=== PATIENT | female | born 1970 | race Hispanic/Latino ===

== ENCOUNTER 2018-05-17 23:22 | Emergency (ER) | payer OTHER ==
[~2018-05-17 23:22] MED LIST: CIPR-245 PO; FAMO-136 PO; METR500T PO
[2018-05-18] MEDS ORDERED: ONDANSETRON ODT 4 MG TAB ONE (00:25)
[2018-05-18] MEDS ORDERED: FAMOTIDINE 20MG TAB 20 MG TAB ONE (00:25)
== END 2018-05-18 00:41 | disposition home or self-care (01) ==
LOC: EDH 23:22
DX: R10.13 Epigastric pain (principal); R11.0 Nausea; R05 Cough

== ENCOUNTER 2019-07-13 20:38 | Emergency (ER) | payer SELFPAY | END 2019-07-13 21:02 | disposition home or self-care (01) | LOC: EDH 20:38 | DX: L29.9 Pruritus, unspecified (principal) | CPT/HCPCS: 99281 ==

== ENCOUNTER 2019-07-19 04:21 | Emergency (ER) | payer OTHER | END 2019-07-19 04:39 | disposition home or self-care (01) | LOC: EDH 04:21 | DX: B34.9 Viral infection, unspecified (principal); Z98.890 Other specified postprocedural states | CPT/HCPCS: 99281 ==

== ENCOUNTER 2019-09-07 18:31 | Emergency (ER) | payer SELFPAY | END 2019-09-07 19:18 | disposition home or self-care (01) | LOC: EDH 18:31 | DX: H66.92 Otitis media, unspecified, left ear (principal) ==

== ENCOUNTER 2019-09-30 14:54 | Emergency (ER) | payer SELFPAY | END 2019-09-30 15:37 | disposition home or self-care (01) | LOC: EDH 14:54 | DX: R09.81 Nasal congestion (principal); H92.02 Otalgia, left ear; Z98.890 Other specified postprocedural states | CPT/HCPCS: 99281 ==

== ENCOUNTER 2019-11-03 18:40 | Emergency (ER) | payer SELFPAY ==
[2019-11-03 19:45] LABS: BASOPHILS % (AUTO) 0.4 % (0.0-5.0); HEMATOCRIT 36.8 % (36-48); LYMPHOCYTES % (AUTO) 32.4 % (21.0-51.0); MEAN CORPUSCULAR HEMOGLOBIN 28.4 pg (27.0-33.0); MEAN CORPUSCULAR HGB CONC 31.5 g/dL (32.0-36.0); MEAN CORPUSCULAR VOLUME 90.2 fL (79-99); MONOCYTES % (AUTO) 6.7 % (3.0-13.0); NEUTROPHILS % (AUTO) 56.1 % (40.0-77.0); PLATELET COUNT (AUTO) 204 K/uL (130-400); RED BLOOD CELL COUNT(AUTO) 4.08 MIL/uL (4.00-5.50); RED CELL DISTRIBUTION WIDTH 13.6 % (11.0-15.5); WHITE BLOOD COUNT (AUTO) 5.6 K/uL (4.8-10.8)
[2019-11-03 19:53] LABS: BILIRUBIN,URINE Negative (NEGATIVE); COLOR,URINE Yellow (YELLOW); GLUCOSE, URINE (UA) Negative (NEGATIVE); KETONES,URINE Negative (NEGATIVE); LEUKOCYTE ESTERASE ,URINE Negative (NEGATIVE); NITRATE,URINE Negative (NEGATIVE); OCCULT BLOOD,URINE Negative (NEGATIVE); PROTEIN,URINE Negative (NEGATIVE)
[2019-11-03 19:56] LABS: CREATININE 1.1 mg/dL (0.5-1.5); HCG,QUAL RESULT NEGATIVE (NEGATIVE); POTASSIUM 3.9 mmol/L (3.5-5.1)
[2019-11-03 19:58] LABS: AMPHET/METH SCREEN,URINE NEGATIVE (NEGATIVE); APPEARANCE,URINE SLIGHTLY CLOUDY (CLEAR); BARBITURATE SCREEN, URINE NEGATIVE (NEGATIVE); BENZODIAZEPINES SCREEN,URINE NEGATIVE (NEGATIVE); CANNABINOID SCREEN,URINE NEGATIVE (NEGATIVE); COCAINE SCREEN,URINE NEGATIVE (NEGATIVE); OPIATE SCREEN,URINE NEGATIVE (NEGATIVE); PHENCYCLIDINE SCREEN,URINE NEGATIVE (NEGATIVE)
[2019-11-03 20:01] LABS: ALBUMIN 3.9 g/dL (3.5-5.0); BILIRUBIN,TOTAL 0.3 mg/dL (0.2-1.0); TOTAL PROTEIN, SERUM 10.1 g/dL (6.0-8.3)
[2019-11-03 20:04] LABS: BACTERIA,URINE Few /HPF (None Seen); RBC,URINE None Seen /HPF (0-1); WBC,URINE 0-1 /HPF (0-1)
[2019-11-03] MEDS ORDERED: ONDANSETRON HCL 4 MG/2 ML VIAL ONE (20:46)
[2019-11-03] MEDS ORDERED: KETOROLAC TROMETHAMINE 30MG/ML ONE (20:46)
[2019-11-03] MEDS ORDERED: FAMOTIDINE/PF 20 MG/2 ML VIAL IV ONE (20:46)
[2019-11-03] MEDS ORDERED: SUCRALFATE 1 GM TABLET ONE (20:46)
== END 2019-11-03 21:20 | disposition home or self-care (01) ==
LOC: EDH 18:40
DX: R10.11 Right upper quadrant pain (principal); R10.13 Epigastric pain; R11.0 Nausea; Z98.890 Other specified postprocedural states
CPT/HCPCS: 36415; 80053; 80305; 81001; 81025; 83690; 84484; 85025; 93005; 96374; 96375; 99284; J1885; J2405; J3490

== ENCOUNTER 2019-11-11 00:24 | Emergency (ER) | payer SELFPAY ==
[2019-11-11] MEDS ORDERED: LIDOCAINE HCL-MPF 1% 2ML VIAL ONE (01:05)
[2019-11-11] MEDS ORDERED: HYDROCODONE/ACETAMINOPHEN 10/325 MG TAB ONE (01:05)
[2019-11-11] MEDS ORDERED: CEFTRIAXONE SODIUM 1 GM ONE (01:05)
[2019-11-11] MEDS ORDERED: ONDANSETRON ODT 4 MG TAB ONE (01:06)
== END 2019-11-11 01:28 | disposition home or self-care (01) ==
LOC: EDH 00:24
DX: K04.7 Periapical abscess without sinus (principal); K08.89 Other specified disorders of teeth and supporting structures; Z98.890 Other specified postprocedural states
CPT/HCPCS: 96372; 99283; J0696; J3490

== ENCOUNTER 2020-01-08 18:30 | Emergency (ER) | payer OTHER ==
[2020-01-08 18:53] LABS: BASOPHILS % (AUTO) 0.3 % (0.0-5.0); EOSINOPHILS % (AUTO) 3.3 % (0.0-8.0); HEMATOCRIT 30.3 % (36-48); LYMPHOCYTES % (AUTO) 28.2 % (21.0-51.0); MEAN CORPUSCULAR HEMOGLOBIN 28.4 pg (27.0-33.0); MEAN CORPUSCULAR HGB CONC 31.7 g/dL (32.0-36.0); MEAN CORPUSCULAR VOLUME 89.6 fL (79-99); PLATELET COUNT (AUTO) 219 K/uL (130-400); RED BLOOD CELL COUNT(AUTO) 3.38 MIL/uL (4.00-5.50); RED CELL DISTRIBUTION WIDTH 13.4 % (11.0-15.5); WHITE BLOOD COUNT (AUTO) 5.8 K/uL (4.8-10.8)
[2020-01-08] MEDS ORDERED: ONDANSETRON ODT 4 MG TAB ONE (19:05)
[2020-01-08] MEDS ORDERED: LIDOCAINE HCL 2% VISCOUS 15 ML UDCUP ONE (19:05)
[2020-01-08] MEDS ORDERED: MAG HYDROX/AL HYDROX/SIMETH ES 30 ML SUSP UDCUP ONE (19:05)
[2020-01-08 19:12] LABS: CREATININE 1.1 mg/dL (0.5-1.5); POTASSIUM 3.2 mmol/L (3.5-5.1)
[2020-01-08 19:15] LABS: APPEARANCE,URINE Clear (CLEAR); BILIRUBIN,URINE Negative (NEGATIVE); COLOR,URINE Yellow (YELLOW); GLUCOSE, URINE (UA) Negative (NEGATIVE); KETONES,URINE Negative (NEGATIVE); LEUKOCYTE ESTERASE ,URINE Trace (NEGATIVE); NITRATE,URINE Negative (NEGATIVE); OCCULT BLOOD,URINE Large (NEGATIVE); PH,URINE 7.5 (5.0-8.0); PROTEIN,URINE Negative (NEGATIVE)
[2020-01-08 19:16] LABS: ALBUMIN 3.1 g/dL (3.5-5.0); BILIRUBIN,TOTAL 0.1 mg/dL (0.2-1.0); TOTAL PROTEIN, SERUM 8.6 g/dL (6.0-8.3)
[2020-01-08 19:17] LABS: HCG,QUAL RESULT NEGATIVE (NEGATIVE)
[2020-01-08 19:23] LABS: AMPHET/METH SCREEN,URINE NEGATIVE (NEGATIVE); BARBITURATE SCREEN, URINE NEGATIVE (NEGATIVE); BENZODIAZEPINES SCREEN,URINE NEGATIVE (NEGATIVE); CANNABINOID SCREEN,URINE NEGATIVE (NEGATIVE); COCAINE SCREEN,URINE NEGATIVE (NEGATIVE); OPIATE SCREEN,URINE NEGATIVE (NEGATIVE); PHENCYCLIDINE SCREEN,URINE NEGATIVE (NEGATIVE)
[2020-01-08 19:27] LABS: BACTERIA,URINE Few /HPF (None Seen); SQUAMOUS EPITHELIAL CELL,UR Moderate /HPF (0-2)
[2020-01-08 19:28] LABS: MUCUS,URINE Moderate LPF (None Seen)
== END 2020-01-08 19:55 | disposition home or self-care (01) ==
LOC: EDH 18:30
DX: K29.00 Acute gastritis without bleeding (principal); E87.6 Hypokalemia; D50.9 Iron deficiency anemia, unspecified; D64.9 Anemia, unspecified; Z98.890 Other specified postprocedural states
CPT/HCPCS: 36415; 80053; 80305; 81001; 81025; 83690; 85025; 93005

== ENCOUNTER 2020-07-28 19:21 | Emergency (ER) | payer OTHER ==
[~2020-07-28 19:21] MED LIST changes: -CIPR-245 PO; +CIPR500T10 PO
[2020-07-28] MEDS ORDERED: KETOROLAC TROMETHAMINE 30MG/ML ONE (21:11)
[2020-07-28] MEDS ORDERED: HYDROCODONE/ACETAMINOPHEN 5/325 MG TAB ONE (21:12)
== END 2020-07-28 22:37 | disposition home or self-care (01) ==
LOC: EDH 19:21
DX: M54.2 Cervicalgia (principal); R51.9 Headache, unspecified; M54.9 Dorsalgia, unspecified; Z98.890 Other specified postprocedural states; V49.59XA Passenger injured in collision with other motor vehicles in traffic accident, initial encounter; Y93.89 Activity, other specified; Y92.488 Other paved roadways as the place of occurrence of the external cause; Y99.8 Other external cause status
CPT/HCPCS: 70450; 72070; 72125; 96372; 99285; J1885

== ENCOUNTER 2020-08-17 16:29 | Emergency (ER) | payer OTHER ==
[2020-08-17 18:04] LABS: BASOPHILS % (AUTO) 0.7 % (0.0-5.0); EOSINOPHILS % (AUTO) 3.2 % (0.0-8.0); HEMATOCRIT 30.9 % (36-48); LYMPHOCYTES % (AUTO) 26.1 % (21.0-51.0); MEAN CORPUSCULAR HEMOGLOBIN 27.7 pg (27.0-33.0); MEAN CORPUSCULAR HGB CONC 31.1 g/dL (32.0-36.0); MONOCYTES % (AUTO) 8.8 % (3.0-13.0); PLATELET COUNT (AUTO) 189 K/uL (130-400); RED BLOOD CELL COUNT(AUTO) 3.47 MIL/uL (4.00-5.50); RED CELL DISTRIBUTION WIDTH 14.6 % (11.0-15.5); WHITE BLOOD COUNT (AUTO) 4.3 K/uL (4.8-10.8)
[2020-08-17 18:09] LABS: CREATININE 0.9 mg/dL (0.5-1.5); POTASSIUM 3.6 mmol/L (3.5-5.1)
[2020-08-17 18:13] LABS: ALBUMIN 3.1 g/dL (3.5-5.0); BILIRUBIN,TOTAL 0.2 mg/dL (0.2-1.0); TOTAL PROTEIN, SERUM 8.5 g/dL (6.0-8.3)
== END 2020-08-17 19:05 | disposition home or self-care (01) ==
LOC: EDH 16:29
DX: K29.00 Acute gastritis without bleeding (principal); K20.90 Esophagitis, unspecified without bleeding; F41.1 Generalized anxiety disorder
CPT/HCPCS: 36415; 71045; 80053; 83690; 85025; 86677; 93005

== ENCOUNTER 2020-12-14 12:23 | Emergency (ER) | payer SELFPAY ==
[2020-12-14 15:14] LABS: BASOPHILS % (AUTO) 0.6 % (0.0-5.0); HEMATOCRIT 37.2 % (36-48); MEAN CORPUSCULAR HEMOGLOBIN 28.7 pg (27.0-33.0); MEAN CORPUSCULAR HGB CONC 31.5 g/dL (32.0-36.0); MEAN CORPUSCULAR VOLUME 91.4 fL (79-99); MONOCYTES % (AUTO) 6.7 % (3.0-13.0); NEUTROPHILS % (AUTO) 63.5 % (40.0-77.0); PLATELET COUNT (AUTO) 207 K/uL (130-400); RED BLOOD CELL COUNT(AUTO) 4.07 MIL/uL (4.00-5.50); RED CELL DISTRIBUTION WIDTH 14.6 % (11.0-15.5)
[2020-12-14 15:16] LABS: APPEARANCE,URINE Cloudy (CLEAR); BILIRUBIN,URINE Negative (NEGATIVE); COLOR,URINE Red (YELLOW); GLUCOSE, URINE (UA) Negative (NEGATIVE); KETONES,URINE Negative (NEGATIVE); LEUKOCYTE ESTERASE ,URINE Trace (NEGATIVE); NITRATE,URINE Negative (NEGATIVE); OCCULT BLOOD,URINE Large (NEGATIVE); PH,URINE 5.5 (5.0-8.0); PROTEIN,URINE POS 2+ mg/dL (NEGATIVE); UROBILINOGEN,URINE 0.2 mg/dL (0.2-1.0)
[2020-12-14 15:24] LABS: CREATININE 0.9 mg/dL (0.5-1.5); POTASSIUM 3.7 mmol/L (3.5-5.1)
[2020-12-14 15:25] LABS: BACTERIA,URINE Moderate /HPF (None Seen); WBC,URINE 0-1 /HPF (0-1)
[2020-12-14 15:28] LABS: SQUAMOUS EPITHELIAL CELL,UR 30-50 /HPF (0-2)
[2020-12-14 15:28] LABS: ALBUMIN 3.3 g/dL (3.5-5.0); BILIRUBIN,TOTAL 0.2 mg/dL (0.2-1.0); TOTAL PROTEIN, SERUM 9.2 g/dL (6.0-8.3)
[2020-12-14] MEDS ORDERED: CLOT15C TP (15:31)
[2020-12-14 15:44] VITALS: BP 116/81
== END 2020-12-14 15:44 | disposition home or self-care (01) ==
LOC: EDH 12:23
DX: B35.6 Tinea cruris (principal); E66.3 Overweight
CPT/HCPCS: 36415; 80053; 81001; 81025; 82948; 85025; 87088

== ENCOUNTER 2021-02-25 21:31 | Emergency (ER) | payer SELFPAY ==
[~2021-02-25] VITALS: Ht 152.4 cm; Wt 74.8 kg
[~2021-02-25 21:31] MED LIST changes: +CLOT15C TP
[2021-02-25 23:30] LABS: BASOPHILS % (AUTO) 0.4 % (0.0-5.0); EOSINOPHILS % (AUTO) 3.7 % (0.0-8.0); HEMATOCRIT 30.6 % (36-48); LYMPHOCYTES % (AUTO) 28.3 % (21.0-51.0); MEAN CORPUSCULAR HEMOGLOBIN 28.7 pg (27.0-33.0); MEAN CORPUSCULAR VOLUME 89.5 fL (79-99); MONOCYTES % (AUTO) 6.9 % (3.0-13.0); NEUTROPHILS % (AUTO) 60.7 % (40.0-77.0); PLATELET COUNT (AUTO) 245 K/uL (130-400); RED BLOOD CELL COUNT(AUTO) 3.42 MIL/uL (4.00-5.50); WHITE BLOOD COUNT (AUTO) 5.4 K/uL (4.8-10.8)
[2021-02-25 23:43] LABS: CREATININE 0.9 mg/dL (0.5-1.5); POTASSIUM 3.7 mmol/L (3.5-5.1)
[2021-02-25] MEDS ORDERED: ESTROGENS,CONJUGATED 25 MG/VIAL IM STA (23:48)
[2021-02-25 23:49] LABS: ALBUMIN 3.2 g/dL (3.5-5.0); BILIRUBIN,TOTAL 0.1 mg/dL (0.2-1.0); TOTAL PROTEIN, SERUM 8.7 g/dL (6.0-8.3)
[2021-02-25] MEDS ORDERED: ONDANSETRON ODT 4MG TAB SL STA (23:50)
[2021-02-25] MEDS ORDERED: KETOROLAC 30MG VIAL (30MG/ML) IM STA (23:52)
[2021-02-25] MEDS ORDERED: ONDANSETRON 4MG INJ ONE (23:55)
[2021-02-25] MEDS ORDERED: HYDROCODONE/ACETAMINOPHEN 5/325 MG TAB ONE (23:55)
[2021-02-25] MEDS ORDERED: KETOROLAC 30MG VIAL (30MG/ML) ONE (23:55)
[2021-02-26] MEDS ORDERED: HYDROCODONE/ACETAMINOPHEN 5/325 MG TAB PO ONE
[2021-02-26] MEDS ORDERED: NORG1TAB87 PO (00:05)
[2021-02-26] MEDS ORDERED: FERR-72 PO (00:05)
[2021-02-26 00:12] VITALS: BP 128/70
== END 2021-02-26 00:16 | disposition home or self-care (01) ==
LOC: EDH 21:31
DX: D50.9 Iron deficiency anemia, unspecified (principal); N93.8 Other specified abnormal uterine and vaginal bleeding; Z79.1 Long term (current) use of non-steroidal anti-inflammatories (NSAID); Z79.899 Other long term (current) drug therapy
CPT/HCPCS: 36415 ×2; 80053; 84703; 85025; 86850; 86900; 86901; 96372; 99283; J1885; J1410; J2405

== ENCOUNTER 2021-03-18 01:11 | Emergency (ER) | payer OTHER ==
[~2021-03-18] VITALS: Ht 152.4 cm; Wt 77.1 kg
[~2021-03-18 01:11] MED LIST changes: +FERR-72 PO; +NORG1TAB87 PO
[2021-03-18 01:45] LABS: BASOPHILS % (AUTO) 0.6 % (0.0-5.0); EOSINOPHILS % (AUTO) 3.6 % (0.0-8.0); HEMATOCRIT 32.7 % (36-48); LYMPHOCYTES % (AUTO) 27.1 % (21.0-51.0); MEAN CORPUSCULAR HEMOGLOBIN 28.6 pg (27.0-33.0); MEAN CORPUSCULAR HGB CONC 31.5 g/dL (32.0-36.0); MEAN CORPUSCULAR VOLUME 90.8 fL (79-99); MONOCYTES % (AUTO) 10.7 % (3.0-13.0); NEUTROPHILS % (AUTO) 57.7 % (40.0-77.0); PLATELET COUNT (AUTO) 229 K/uL (130-400); RED CELL DISTRIBUTION WIDTH 13.2 % (11.0-15.5); WHITE BLOOD COUNT (AUTO) 6.7 K/uL (4.8-10.8)
[2021-03-18 01:51] LABS: BILIRUBIN,URINE Negative (NEGATIVE); COLOR,URINE Yellow (YELLOW); GLUCOSE, URINE (UA) Negative (NEGATIVE); KETONES,URINE Negative (NEGATIVE); LEUKOCYTE ESTERASE ,URINE Small (NEGATIVE); NITRATE,URINE Negative (NEGATIVE); OCCULT BLOOD,URINE Small (NEGATIVE); PH,URINE 5.5 (5.0-8.0); PROTEIN,URINE Negative (NEGATIVE)
[2021-03-18 01:52] LABS: APPEARANCE,URINE SLIGHTLY CLOUDY (CLEAR)
[2021-03-18 01:53] LABS: HCG,QUAL RESULT NEGATIVE (NEGATIVE)
[2021-03-18 01:54] LABS: CREATININE 0.9 mg/dL (0.5-1.5); POTASSIUM 3.4 mmol/L (3.5-5.1)
[2021-03-18 01:58] LABS: ALBUMIN 3.2 g/dL (3.5-5.0); BILIRUBIN,TOTAL 0.1 mg/dL (0.2-1.0); TOTAL PROTEIN, SERUM 9.2 g/dL (6.0-8.3)
[2021-03-18 02:01] LABS: BACTERIA,URINE Moderate /HPF (None Seen); SQUAMOUS EPITHELIAL CELL,UR Moderate /HPF (0-2)
[2021-03-18] MEDS ORDERED: FAMOTIDINE 20MG VIAL IV ONE (03:30)
[2021-03-18] MEDS ORDERED: METOCLOPRAMIDE 10 MG/2 ML VIAL IVP ONE (03:30)
[2021-03-18] MEDS ORDERED: ONDANSETRON 4MG INJ IVP ONE (03:30)
[2021-03-18] MEDS ORDERED: 0.9%NACL 1000ML 1,000 ML IV ONE (03:30)
[2021-03-18] MEDS ORDERED: PANTOPRAZOLE 40 MG/VIAL IVP ONE (03:30)
[2021-03-18] MEDS ORDERED: PANT40TA PO (05:59)
[2021-03-18] MEDS ORDERED: METO-296 PO (05:59)
[2021-03-18] MEDS ORDERED: ONDA4TAB10 PO (05:59)
[2021-03-18] MEDS ORDERED: DICY20TA2 PO (05:59)
[2021-03-18 06:01] VITALS: BP 113/56
== END 2021-03-18 06:11 | disposition home or self-care (01) ==
LOC: EDH 01:11
DX: K29.70 Gastritis, unspecified, without bleeding (principal); E86.9 Volume depletion, unspecified; Z79.899 Other long term (current) drug therapy
CPT/HCPCS: 36415; 80053; 81001; 81025; 83690; 85025; 87088; 96374; 96375; 99285; C9113; J2405; J2765; J3490

== ENCOUNTER 2023-07-02 18:22 | Emergency (ER) | payer OTHER ==
[~2023-07-02] VITALS: Ht 160 cm; Wt 69.4 kg
[~2023-07-02 18:22] MED LIST changes: +DICY20TA2 PO; +METO-296 PO; +ONDA4TAB10 PO; +PANT40TA PO
[2023-07-02 19:16] LABS: BASOPHILS # (AUTO) 0.04 K/uL (0.00-0.20); BASOPHILS % (AUTO) 0.8 % (0.0-5.0); EOSINOPHILS # (AUTO) 0.24 K/uL (0.00-0.70); EOSINOPHILS % (AUTO) 4.9 % (0.0-8.0); HEMATOCRIT 36.4 % (36-48); IMMATURE GRANULOCYTE ABSOLUTE 0.01 K/uL (0-1); LYMPHOCYTES # (AUTO) 1.5 K/uL (1.0-4.8); LYMPHOCYTES % (AUTO) 29.7 % (21.0-51.0); MEAN CORPUSCULAR HEMOGLOBIN 28.6 pg (27.0-33.0); MEAN CORPUSCULAR HGB CONC 31.6 g/dL (32.0-36.0); MEAN CORPUSCULAR VOLUME 90.5 fL (79-99); MONOCYTES # (AUTO) 0.4 K/uL (0.1-1.0); MONOCYTES % (AUTO) 7.1 % (3.0-13.0); NEUTROPHILS # (AUTO) 2.8 K/uL (1.8-7.7); NEUTROPHILS % (AUTO) 57.3 % (40.0-77.0); PLATELET COUNT (AUTO) 176 K/uL (130-400); RED BLOOD CELL COUNT(AUTO) 4.02 MIL/uL (4.00-5.50); RED CELL DISTRIBUTION WIDTH 13.9 % (11.0-15.5); WHITE BLOOD COUNT (AUTO) 4.9 K/uL (4.8-10.8)
[2023-07-02 19:30] LABS: CREATININE 0.8 mg/dL (0.5-1.0)
[2023-07-02 19:32] LABS: APPEARANCE,URINE CLEAR (CLEAR); BILIRUBIN,URINE NEGATIVE (NEGATIVE); COLOR,URINE COLORLESS (YELLOW); GLUCOSE, URINE (UA) NEGATIVE (NEGATIVE); KETONES,URINE NEGATIVE (NEGATIVE); LEUKOCYTE ESTERASE ,URINE NEGATIVE Leu/uL (NEGATIVE); NITRATE,URINE NEGATIVE (NEGATIVE); OCCULT BLOOD,URINE NEGATIVE (NEGATIVE); PH,URINE 6.5 (5.0-8.0); PROTEIN,URINE NEGATIVE (NEGATIVE); UROBILINOGEN,URINE 0.2 mg/dL (0.2-1.0)
[2023-07-02 19:35] LABS: ADD UA MICROSCOPIC YES
[2023-07-02 19:35] LABS: ALBUMIN 3.2 g/dL (3.5-5.0); BILIRUBIN,TOTAL 0.1 mg/dL (0.2-1.0); TOTAL PROTEIN, SERUM 8.4 g/dL (6.0-8.3)
[2023-07-02 19:37] LABS: MUCUS,URINE RARE LPF (None Seen); SQUAMOUS EPITHELIAL CELL,UR RARE /HPF (0-2); WBC,URINE 0-1 /HPF (0-1)
[2023-07-02] MEDS: KETOROLAC 30MG VIAL (30MG/ML) IVP ONE (23:28)
[2023-07-02] MEDS: KETOROLAC 30MG VIAL (30MG/ML) ONE (23:28)
[2023-07-03] MEDS ORDERED: LACT20PA6 PO (01:22)
[2023-07-03 01:24] VITALS: BP 122/62; PULSE 74; RESP 14; O2SAT 98
[2023-07-03] MEDS ORDERED: ONDA4TAB10 PO (14:20)
[2023-07-03] MEDS ORDERED: MAG-37 PO (14:20)
[2023-07-03] MEDS ORDERED: FAMO-136 PO (14:20)
== END 2023-07-03 01:44 | disposition home or self-care (01) ==
LOC: EDH 18:22
DX: K57.30 Diverticulosis of large intestine without perforation or abscess without bleeding (principal); K59.00 Constipation, unspecified; D64.9 Anemia, unspecified; Z79.899 Other long term (current) drug therapy; Z98.890 Other specified postprocedural states
CPT/HCPCS: 99285; 74176; 96374; 84484; 80053; 83690; 85025; 81001; 36415; 74018; 93005; J1885

== ENCOUNTER 2023-07-03 11:35 | Emergency (ER) | payer OTHER ==
[~2023-07-03] VITALS: Ht 157.5 cm; Wt 77.1 kg
[~2023-07-03 11:35] MED LIST changes: +LACT20PA6 PO
[2023-07-03 11:46] VITALS: BP 135/79; PULSE 61; RESP 18
[2023-07-03 12:36] LABS: BASOPHILS # (AUTO) 0.02 K/uL (0.00-0.20); BASOPHILS % (AUTO) 0.5 % (0.0-5.0); EOSINOPHILS # (AUTO) 0.19 K/uL (0.00-0.70); EOSINOPHILS % (AUTO) 4.9 % (0.0-8.0); HEMATOCRIT 37.1 % (36-48); LYMPHOCYTES # (AUTO) 1.3 K/uL (1.0-4.8); LYMPHOCYTES % (AUTO) 34.8 % (21.0-51.0); MEAN CORPUSCULAR HEMOGLOBIN 28.4 pg (27.0-33.0); MEAN CORPUSCULAR HGB CONC 31.5 g/dL (32.0-36.0); MONOCYTES # (AUTO) 0.4 K/uL (0.1-1.0); MONOCYTES % (AUTO) 9.6 % (3.0-13.0); NEUTROPHILS # (AUTO) 1.9 K/uL (1.8-7.7); NEUTROPHILS % (AUTO) 50.2 % (40.0-77.0); PLATELET COUNT (AUTO) 164 K/uL (130-400); RED BLOOD CELL COUNT(AUTO) 4.12 MIL/uL (4.00-5.50); RED CELL DISTRIBUTION WIDTH 13.7 % (11.0-15.5); WHITE BLOOD COUNT (AUTO) 3.9 K/uL (4.8-10.8)
[2023-07-03 12:52] LABS: CREATININE 0.9 mg/dL (0.5-1.0); POTASSIUM 4.7 mmol/L (3.5-5.1)
[2023-07-03 12:56] LABS: ALBUMIN 3.3 g/dL (3.5-5.0); BILIRUBIN,TOTAL 0.3 mg/dL (0.2-1.0); TOTAL PROTEIN, SERUM 8.4 g/dL (6.0-8.3)
[2023-07-03] MEDS: MAGNESIUM CITRATE 296 ML SOLUTION PO ONE (13:09)
[2023-07-03] MEDS: LACTULOSE 20 GM/30 ML UDCUP PO ONE (13:10)
[2023-07-03] MEDS: LIDOCAINE HCL 2% VISCOUS 15 ML UDCUP PO ONE (13:52)
[2023-07-03] MEDS: MAG/ALUM/SIMETH 30 ML UDCUP PO ONE (13:52)
[2023-07-03] MEDS ORDERED: MAG-37 PO (14:20)
[2023-07-03] MEDS ORDERED: ONDA4TAB10 PO (14:20)
[2023-07-03] MEDS ORDERED: FAMO-136 PO (14:20)
== END 2023-07-03 14:27 | disposition home or self-care (01) ==
LOC: EDH 11:35
DX: K29.70 Gastritis, unspecified, without bleeding (principal); D64.9 Anemia, unspecified; Z79.899 Other long term (current) drug therapy; Z98.890 Other specified postprocedural states
CPT/HCPCS: 36415; 74018; 80053; 83690; 84484; 85025; 93005

== ENCOUNTER 2023-07-03 16:32 | Emergency (ER) | payer OTHER ==
[~2023-07-03] VITALS: Ht 157.5 cm; Wt 70.3 kg
[~2023-07-03 16:32] MED LIST changes: +MAG-37 PO
[2023-07-03 16:52] VITALS: BP 116/67; PULSE 71; RESP 18
[2023-07-03] MEDS: ONDANSETRON ODT 4MG TAB SL ONE (19:20)
[2023-07-03] MEDS: MAG/ALUM/SIMETH 30 ML UDCUP PO ONE (19:20)
[2023-07-03] MEDS: FAMOTIDINE 20MG TAB PO ONE (19:20)
[2023-07-03] MEDS: LIDOCAINE HCL 2% VISCOUS 15 ML UDCUP PO ONE (19:20)
== END 2023-07-03 19:19 | disposition left against medical advice (07) ==
LOC: EDH 16:32
DX: K29.70 Gastritis, unspecified, without bleeding (principal); K59.00 Constipation, unspecified; J45.909 Unspecified asthma, uncomplicated; D64.9 Anemia, unspecified; Z79.899 Other long term (current) drug therapy; Z98.890 Other specified postprocedural states
CPT/HCPCS: 99282

== ENCOUNTER 2023-07-26 01:53 | Emergency (ER) | payer OTHER ==
[~2023-07-26] VITALS: Ht 157.5 cm; Wt 74.8 kg
[2023-07-26 01:55] VITALS: BP 133/53; PULSE 65; RESP 18
== END 2023-07-26 02:51 | disposition home or self-care (01) ==
LOC: EDH 01:53
DX: R60.0 Localized edema (principal); Z79.899 Other long term (current) drug therapy
CPT/HCPCS: 99281

== ENCOUNTER 2023-08-11 11:06 | Emergency (ER) | payer OTHER ==
[~2023-08-11] VITALS: Ht 157.5 cm; Wt 74.8 kg
[2023-08-11] MEDS ORDERED: CLIN-141 PO (11:31)
[2023-08-11] MEDS ORDERED: IBUP-2077 PO (11:31)
[2023-08-11] MEDS: KETOROLAC 60 MG VIAL (30MG/ML) IM ONE (11:51)
[2023-08-11 12:04] VITALS: BP 147/78; PULSE 78; RESP 18; O2SAT 98
== END 2023-08-11 12:05 | disposition home or self-care (01) ==
LOC: EDH 11:06
DX: K02.9 Dental caries, unspecified (principal); K08.89 Other specified disorders of teeth and supporting structures; Z79.899 Other long term (current) drug therapy
CPT/HCPCS: 99283; 96372; J1885

== ENCOUNTER 2024-07-05 12:17 | Emergency (ER) | payer SELFPAY ==
[~2024-07-05] VITALS: Ht 157.5 cm; Wt 81.6 kg
[~2024-07-05 12:17] MED LIST changes: +CLIN-141 PO; +IBUP-2077 PO; +ONDA-243 PO; -ONDA4TAB10 PO
--- NOTE | 2024-07-05 12:31 | ERN ---
General Chief Complaint: Headache Stated Complaint: HEAD PAIN,WEAKNESS Time Seen by MD: 12:18 Source: patient History of Present Illness Initial Comments Patient is a 53-year-old female coming in to be evaluated for headache and chest discomfort. Patient states that the discomfort began yesterday. She states that the headache is quantifies as his hand. She also states that she has not followed up with the PCP in his here also for chest discomfort. Allergies: Coded Allergies: No Known Drug Allergies (Unverified Allergy, Unknown, 07/13/19) Uncoded Allergies: NKDA (Allergy, Unknown, 09/03/13) Home Meds Active Scripts Ibuprofen (Ibuprofen 800 mg Tab) 800 Mg Tab, 800 MG PO Q6H PRN for PAIN, #30 TAB Prov:AFIA HOFFMAN SEAMER 08/11/23 Clindamycin HCl (Clindamycin HCl) 300 Mg Capsule, 1 CAP PO QID for 10 Days, #40 CAP 0 Refills Prov:AFIA HOFFMAN SEAMER 08/11/23 Mag Hydrox/Aluminum Hyd/Simeth (Maalox Advanced Suspension) 200 Mg-200 Mg-20 Mg/5 Ml Oral.susp, 30 ML PO Q4HPRN PRN for ABDOMINAL PAIN, #335 ML 0 Refills Prov:AMANDA CRUMP [employer] 07/03/23 Ondansetron (Ondansetron Odt) 4 Mg Tab.rapdis, 4 MG PO Q6HPRN PRN for nausea, #12 TAB 0 Refills Prov:AMANDA CRUMPP 07/03/23 Famotidine (Pepcid) 20 Mg Tablet, 1 TAB PO BID, #14 TAB 0 Refills Prov:AMANDA CRUMP [employer] 07/03/23 Lactulose (Kristalose) 20 Gram Packet, 20 GM PO HS, #7 PKT Prov:RAFA ROMERO V [employer] 07/03/23 Metoclopramide HCl (Reglan) 10 Mg Tablet, 10 MG PO TIDP, #20 TAB 0 Refills Prov:EULALIA UPTON MD 03/18/21 Dicyclomine HCl (Bentyl) 20 Mg Tab, 20 MG PO Q6HPRN, #20 TAB 0 Refills Prov:EULALIA UPTON MD 03/18/21 Pantoprazole Sodium (Protonix) 40 Mg Tablet.dr, 40 MG PO DAILY, #10 TAB 0 Refills Prov:EULALIA UPTON MD 03/18/21 Ondansetron (Ondansetron Odt) 4 Mg Tab.rapdis, 4 MG PO Q6HPRN, #20 TAB 0 Refills Prov:EULALIA UPTON MD 03/18/21 Ferrous Sulfate (Ferrous Sulfate) 325 Mg Tablet, 325 MG PO DAILY, #30 TAB 2 Refills Prov:THELMA KING NP 02/26/21 Norgestimate-Ethinyl Estradiol (Ortho Tri-Cyclen) 1 Each Tablet, 1 EACH PO DAILY, #30 TAB 3 Refills Prov:THELMA KING NP 02/26/21 Clotrimazole (Lotrimin 1% Cream) 1 Appl/Gm Crm, 1 APPL TP BID, #30 GM Prov:KATHIE REVELES 12/14/20 Famotidine (Pepcid) 20 Mg Tablet, 20 MG PO BID, #30 TAB Prov:GARIMA SALAZAR MD 09/10/14 Ciprofloxacin HCl (Ciprofloxacin HCl) 500 Mg Tablet, 500 MG PO BID, #14 TAB Prov:GARIMA SALAZAR MD 09/10/14 Metronidazole (Flagyl) 500 Mg Tablet, 500 MG PO BID, #14 TAB Prov:GARIMA SALAZAR MD 09/10/14 Past Medical History Past Medical History: No Pertinent History Medical History Other: 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 HEAD/FACE: No signs of trauma. EENT: No eye pain, no blurred vision, no tearing, no double vision, no ear pain, no ear discharge, no nose pain, no nasal congestion, no throat pain, no throat swelling, no mouth pain. RESPIRATORY: No cough, no orthopnea, no SOB, no stridor, no wheezing. CARDIOVASCULAR: No chest pain, no edema, no palpitations, no syncope. GASTROINTESTINAL/ABDOMINAL: No abdominal pain, no constipation, no diarrhea, no nausea, no vomiting. GENITOURINARY: No abnormal discharge, no dysuria, no frequent urination, no hematuria. No complaints of pain in the genitals. MUSCULOSKELETAL: No back pain, no gout, no joint pain, no joint swelling, no muscle pain, no muscle stiffness, no neck pain. INTEGUMENTARY: No change in color, no change in hair/nails, no dryness, no lesion, no lumps, no rash. NEUROLOGICAL/PSYCH: No anxiety, not depressed, no emotional problem, no headache, no numbness, no pre-existing deficit, no history of seizures, no tremors, no weakness. HEMATOLOGIC/LYMPHATIC: Not anemic, no history of blood clots, no apparent bleeding, no bruising, glands not swollen. All Systems Negative, Except as Noted. Physical Exam Physical Exam Dictation VITAL SIGNS: Reviewed. GENERAL APPEARANCE: Alert, oriented x3, no acute distress, obese. HEAD AND FACE: Non-traumatic. EYES: PERRL, pink conjunctivas, eyelid no trauma, anterior chamber clear. EARS: Pinnas intact and no signs of trauma or erythema. Ear canals clear and no discharge. TMs no erythema. NOSE: No discharge, no bleeding. IN HIS IS A TURBINATE SWELLING OROPHARYNX: Mouth normal, teeth no caries, tongue pink. Pharynx erythema. Tonsils no exudates, no abscesses noted. Mucous membrane moist. NECK: Supple, non-tender, no thyromegaly, no masses, no JVD, no bruits. BREAST: Deferred. CHEST: No tenderness, no crepitus, no paradoxical movement, no retractions. LUNGS: Clear, well-ventilated, symmetric, no rales, no wheezing, no rhonchi, no stridor, good breath sounds bilaterally. HEART: Regular rate, regular rhythm, no murmur, no gallops. VASCULAR: No peripheral edema. ABDOMEN: Soft, positive bowel sounds, nondistended, no guarding, nontender, no rebound, no masses no hepatomegaly, no splenomegaly, no Masters's sign, no hernias. RECTAL: Deferred. GENITAL: Deferred. NEUROLOGICAL: Normal speech, gross motor function intact, gross sensory function intact. MUSCULOSKELETAL: Neck nontender, full range of motion, back nontender, full range of motion. EXTREMITIES: Nontender, full range of motion. SKIN: Color pink, dry, no turgor, no rash, no lacerations, no abrasions, no contusions. LYMPHATICS: Deferred. Results Laboratory and Microbiology Lab and Micro Result Laboratory Tests Test 07/05/24 14:04 07/05/24 15:09 White Blood Count 5.1 K/uL (4.8-10.8) Red Blood Count 4.06 MIL/uL (4.00-5.50) Hemoglobin 11.7 g/dL (12.0-16.0) L Hematocrit 37.2 % (36-48) Mean Corpuscular Volume 91.6 fL (79-99) Mean Corpuscular Hemoglobin 28.8 pg (27.0-33.0) Mean Corpuscular Hemoglobin Concent 31.5 g/dL (32.0-36.0) L Red Cell Distribution Width 13.8 % (11.0-15.5) Platelet Count 211 K/uL (130-400) Mean Platelet Volume 11.1 fL (7.5-10.5) H Immature Granulocyte % (Auto) 0.2 % (0-1) Neutrophils (%) (Auto) 65.3 % (40.0-77.0) Lymphocytes (%) (Auto) 23.6 % (21.0-51.0) Monocytes (%) (Auto) 6.8 % (3.0-13.0) Eosinophils (%) (Auto) 3.5 % (0.0-8.0) Basophils (%) (Auto) 0.6 % (0.0-5.0) Neutrophils # (Auto) 3.4 K/uL (1.8-7.7) Lymphocytes # (Auto) 1.2 K/uL (1.0-4.8) Monocytes # (Auto) 0.4 K/uL (0.1-1.0) Eosinophils # (Auto) 0.18 K/uL (0.00-0.70) Basophils # (Auto) 0.03 K/uL (0.00-0.20) Absolute Immature Granulocyte (auto 0.01 K/uL (0-1) Nucleated Red Blood Cells 0.0 % (0.0-0.19) Prothrombin Time 9.8 SEC (9.6-11.6) Prothromb Time International Ratio <= 0.93 (0.85-1.15) Activated Partial Thromboplast Time 25.4 SEC (26.3-35.5) L Sodium Level 136 mmol/L (136-145) Potassium Level 4.8 mmol/L (3.5-5.1) Chloride Level 103 mmol/L (101-111) Carbon Dioxide Level 31 mmol/L (21-32) Blood Urea Nitrogen 13 mg/dL (7-18) Creatinine 0.9 mg/dL (0.5-1.0) Glomerular Filtration Rate Calc 77 mL/min (>90) Random Glucose 112 mg/dL (70-105) H Total Calcium 9.1 mg/dL (8.5-10.1) Magnesium Level 2.50 mg/dL (1.80-2.40) H Total Creatine Kinase 64 U/L (21-232) Troponin I High Sensitivity 4 ng/L (4-50) B-Type Natriuretic Peptide 12 pg/mL (0-100) Influenza Type A Antigen Negative For Type A Influenza Type B Antigen Negative For Type B SARS-CoV-2, RNA, NAAT NEGATIVE SARS CoV-2 Group A Streptococcus Rapid negative (NEGATIVE) Labs Reviewed?: Yes EKG/XRAY/US/CT/MRI X-RAY Comment [address] [address] IMAGING REPORT Signed PATIENT: JJ SANCHEZ MR#: [id number] : 1970 SEX: F AGE: 53 LOCATION: [facility] ORDER 1221 STATUS: [facility] REPORT#: [id number] SERVICE 1219 REASON: cp ORDERING PHYSICIAN: CAMILLA MÉNDEZ MD PROCEDURE: CXR1VW - CHEST 1VW CHEST 1VW HISTORY: Chest pain COMPARISON: 08/17/2020 FINDINGS: A frontal projection of the chest was obtained. No acute pulmonary infiltrates is seen. The heart is normal in size. Prominent interstitial markings are seen. Degenerative changes are seen. No evidence of aortic calcification is seen. IMPRESSION: 1. No acute pulmonary infiltrate is seen. DICTATED BY: MARY DENSON MD DATE: 07/05/24 131 ELECTRONICALLY SIGNED BY: MARY DENSON MD DATE: 07/05/24 131 MDM MDM: DIFFERENTIAL DIAGNOSIS: HYDRATION, TENSION HEADACHE, SINUSITIS, URI 53-YEAR-OLD FEMALE COMING IN TO BE EVALUATED FOR MULTIPLE COMPLAINTS. PATIENT STATES THAT SHE HAS BEEN HAVING HEADACHE COUGH CHEST DISCOMFORT AND GENERALIZED BODY WEAKNESS. LABORATORY WORKUP WHICH INCLUDES CARDIAC WORKUP NEGATIVE FOR ACUTE FINDINGS. PATIENT WAS HYDRATED WITH IV FLUIDS STATES HE FEELS A LOT BETTER. PATIENT WILL BE DISCHARGED IN STABLE CONDITION. ON PHYSICAL EXAM PATIENT DID HAVE NASAL TURBINATE SWELLING BILATERAL FACIAL DISCOMFORT ON PALPATION SUGGESTIVE OF A MILD SINUSITIS. WE WILL UP SO BE PRESCRIBING MEDIC ATION FOR SINUS DECONGESTION. ED Course Orders Procedure Category Date Status Time Cbc With Differential LAB 07/05/24 Complete 12:19 Prothrombin Time With LAB 07/05/24 Complete INR 12:19 B-Type Natriuretic LAB 07/05/24 Complete Peptide 12:19 Chest 1vw RAD 07/05/24 Resulted 12:19 12 Lead Ekg Tracing- EKG 07/05/24 Complete Technical 12:19 Lactated Ringers PHA 07/05/24 Complete 1000ml (Lactated 12:30 Magnesium LAB 07/05/24 Complete 12:19 Creatine Kinase, Total LAB 07/05/24 Complete 12:19 Troponin I High LAB 07/05/24 Complete Sensitivity 12:19 Urinalysis Profile LAB 07/05/24 Logged 12:19 Partial LAB 07/05/24 Complete Thromboplastin Time 12:19 Basic Metabolic Panel LAB 07/05/24 Complete 12:19 Covid Rna Naat LAB 07/05/24 Complete 12:19 Influenza Type A & B, LAB 07/05/24 Complete Rapid 12:19 Rapid (Group A Strep) LAB 07/05/24 Complete 12:19 Acetaminophen 500mg PHA 07/05/24 Complete Tab (Tylenol 500mg T 12:30 Current Medications Medications (Trade) Dose Ordered Sig/Shikha Route PRN Reason Start Time Stop Time Status Last Admin Dose Admin Acetaminophen (TYLenol 500MG TAB) 1,000 mg ONCE ONCE PO 07/05/24 12:30 07/05/24 12:31 DC 07/05/24 15:03 Lactated Ringer's 1,000 ml @ 0 mls/hr ONCE ONCE IV 07/05/24 12:30 07/05/24 12:31 DC 07/05/24 15:03 Vital Signs Date Time Temp Pulse Resp B/P (MAP) Pulse Ox O2 Delivery O2 Flow Rate FiO2 07/05/24 15:11 98.4 79 12 128/70 99 Room Air* 0 21 07/05/24 12:19 98.1 91 16 108/77 98 Room Air 0 DX & DISP Disposition: Discharge Departure Impression: Primary Impression: Dehydration Additional Impression: Sinusitis Condition: Stable Scripts Loratadine (Loratadine) 10 Mg Tablet 1 TAB PO DAILY for allergy symptoms for 30 Days, #30 TAB 0 Refills Prov: CAMILLA MÉNDEZ MD 07/05/24 Fluticasone Propionate (Flonase Nasal Sundown) 50 Mcg/Actuation Sundown 2 SPRAY NS DAILY, #16 GM 0 Refills Prov: CAMILLA MÉNDEZ MD 07/05/24 Additional Instructions: FOLLOW-UP WITH PRIMARY CARE PROVIDER IN 1 TO 2 DAYS. TAKE MEDICATIONS DIRECTED HERE IN THE EMERGENCY ROOM. OKAY TO CONTINUE HOME MEDICATIONS UNLESS OTHERWISE DISCUSSED DURING YOUR VISIT IN THE EMERGENCY ROOM TODAY. RETURN TO YOUR NEAREST EMERGENCY ROOM IF SYMPTOMS WORSEN OR IF THERE IS NO IMPROVEMENT. CALL 911 IF YOU NEED IMMEDIATE ASSISTANCE. TAKE TYLENOL [id number] NEEDED AND IF NO CONTRAINDICATIONS ARE PRESENT. INCREASE ORAL HYDRATION. A WOUND CULTURE OR URINE CULTURE WAS ORDERED HERE IN THE EMERGENCY ROOM DEPARTMENT PLEASE FOLLOW-UP WITH PRIMARY CARE PROVIDER AND ADVISE THEM TO GET REPEAT PORTS FROM OUR FACILITY. IF YOU HAD ANY RAJINDER WRAP/SPLINTS THAT WERE APPLIED HERE, PLEASE DO NOT REMOVE THEM UNTIL YOU SEE YOUR PRIMARY CARE OR SPECIALTY. REFERRALS: Referrals: SELF,REFERRAL (PCP) ROWENA JOHN MD Time of Disposition: 16:11 CAMILLA MÉNDEZ MD Jul 05, 2024 12:31
--- NOTE | 2024-07-05 13:18 | HMCIMG ---
CHEST 1VW HISTORY: Chest pain COMPARISON: 08/17/2020 FINDINGS: A frontal projection of the chest was obtained. No acute pulmonary infiltrates is seen. The heart is normal in size. Prominent interstitial markings are seen. Degenerative changes are seen. No evidence of aortic calcification is seen. IMPRESSION: 1. No acute pulmonary infiltrate is seen.
[2024-07-05 14:16] LABS: BASOPHILS # (AUTO) 0.03 K/uL (0.00-0.20); BASOPHILS % (AUTO) 0.6 % (0.0-5.0); EOSINOPHILS # (AUTO) 0.18 K/uL (0.00-0.70); EOSINOPHILS % (AUTO) 3.5 % (0.0-8.0); HEMATOCRIT 37.2 % (36-48); IMMATURE GRANULOCYTE ABSOLUTE 0.01 K/uL (0-1); LYMPHOCYTES # (AUTO) 1.2 K/uL (1.0-4.8); LYMPHOCYTES % (AUTO) 23.6 % (21.0-51.0); MEAN CORPUSCULAR HEMOGLOBIN 28.8 pg (27.0-33.0); MEAN CORPUSCULAR HGB CONC 31.5 g/dL (32.0-36.0); MEAN CORPUSCULAR VOLUME 91.6 fL (79-99); MONOCYTES # (AUTO) 0.4 K/uL (0.1-1.0); MONOCYTES % (AUTO) 6.8 % (3.0-13.0); NEUTROPHILS # (AUTO) 3.4 K/uL (1.8-7.7); NEUTROPHILS % (AUTO) 65.3 % (40.0-77.0); PLATELET COUNT (AUTO) 211 K/uL (130-400); RED BLOOD CELL COUNT(AUTO) 4.06 MIL/uL (4.00-5.50); RED CELL DISTRIBUTION WIDTH 13.8 % (11.0-15.5); WHITE BLOOD COUNT (AUTO) 5.1 K/uL (4.8-10.8)
[2024-07-05 14:27] LABS: INR <= 0.93 (0.85-1.15); PROTHROMBIN TIME 9.8 SEC (9.6-11.6)
[2024-07-05 14:28] LABS: PARTIAL THROMBOPLASTIN TIME 25.4 SEC (26.3-35.5)
[2024-07-05 14:36] LABS: CREATININE 0.9 mg/dL (0.5-1.0); POTASSIUM 4.8 mmol/L (3.5-5.1)
[2024-07-05 14:41] LABS: MAGNESIUM 2.5 mg/dL (1.80-2.40)
[2024-07-05 14:43] LABS: B-TYPE NATRIURETIC PEPTIDE 12 pg/mL (0-100)
[2024-07-05] MEDS: acetaMINOPHEN 500 MG TABLET PO ONE (15:03)
[2024-07-05] MEDS: LACTATED RINGERS 1000ML 1,000 ML IV ONE (15:03)
--- NOTE | 2024-07-05 15:24 | EKG ---
[facility] Test Date: 2024-07-05 Test Time: 13:02:06 Pat Name: JJ SANCHEZ Department: ED Room: Gender: F Mannequin Maker: 07 : 1970 Requested By: CAMILLA MÉNDEZ Order Number: [id number] Reading MD: Bhupendra Fuchs Measurements Intervals Norman Rate: 91 P: 46 NE: 139 QRS: 41 QRSD: 94 T: 48 QT: 346 QTc: 426 Interpretive Statements Sinus rhythm RSR' IN V1 OR V2, PROBABLY NORMAL VARIANT Compared to ECG 07/03/2023 12:29:59 ST (T wave) deviation no longer present Electronically Signed On 07-06-2024 12:33:54 CDT by Bhupendra Fuchs Please click the below link to view image of tracing.
[2024-07-05 15:50] LABS: RAPID GROUP A STREP negative (NEGATIVE)
[2024-07-05 15:54] LABS: SARS-CoV-2, RNA, NAAT NEGATIVE SARS CoV-2 (NEGATIVE)
[2024-07-05 15:58] LABS: INFLUENZA TYPE A Negative For Type A (NEGATIVE); INFLUENZA TYPE B Negative For Type B (NEGATIVE)
[2024-07-05 16:08] VITALS: BP 131/74; PULSE 74; RESP 14; TEMP 98.1; O2SAT 99
[2024-07-05] MEDS ORDERED: LORA10TA7 PO (16:11)
[2024-07-05] MEDS ORDERED: FLUT16H NS (16:11)
== END 2024-07-05 16:19 | disposition home or self-care (01) ==
LOC: EDH 12:17
DX: E86.0 Dehydration (principal); J32.9 Chronic sinusitis, unspecified; Z79.899 Other long term (current) drug therapy; Z90.49 Acquired absence of other specified parts of digestive tract; Z20.822 Contact with and (suspected) exposure to COVID-19
CPT/HCPCS: 99285; 96360; 71045; 87635; 82550; 83735; 84484; 80048; 83880; 85025; 85610; 85730; 87880; 87804 ×2; 36415; 93005; J7120

== ENCOUNTER 2024-07-26 00:38 | Emergency (ER) | payer SELFPAY ==
[~2024-07-26] VITALS: Ht 152.4 cm; Wt 68.0 kg
[~2024-07-26 00:38] MED LIST changes: +FLUT16H NS; +LORA10TA7 PO
--- NOTE | 2024-07-26 00:53 | ERN ---
ED Note History of Present Illness Stated Complaint: TORTILLA STUCK IN THROAT Chief Complaint: Choking Time Seen by MD: 00:49 Dictation: PATIENT IS A 53-YEAR-OLD FEMALE HERE WITH COMPLAINTS OF EATING LABORATORY TWO WITH A AGAIN IT 1 HOUR PRIOR TO ARRIVAL WHEN SHE FELT LIKE SHE GOT SOME STUCK IN HER THROAT. SHE SAID SHE HAS HAD NO NAUSEA VOMITING SHE HAS BEEN ABLE TO DRINK SINCE THE ONSET. HER VOICE IS CLEAR. Allergies: Coded Allergies: No Known Drug Allergies (Unverified Allergy, Unknown, 07/13/19) Uncoded Allergies: NKDA (Allergy, Unknown, 09/03/13) Home Meds Active Scripts Loratadine (Loratadine) 10 Mg Tablet, 1 TAB PO DAILY for allergy symptoms for 30 Days, #30 TAB 0 Refills Prov:CAMILLA MÉNDEZ MD 07/05/24 Fluticasone Propionate (Flonase Nasal Chrisman) 50 Mcg/Actuation Chrisman, 2 SPRAY NS DAILY, #16 GM 0 Refills Prov:CAMILLA MÉNDEZ MD 07/05/24 Ibuprofen (Ibuprofen 800 mg Tab) 800 Mg Tab, 800 MG PO Q6H PRN for PAIN, #30 TAB Prov:AFIA [employer] PRO[employer] 08/11/23 Clindamycin HCl (Clindamycin HCl) 300 Mg Capsule, 1 CAP PO QID for 10 Days, #40 CAP 0 Refills Prov:AFIA [employer] PRO[employer]NAGER 08/11/23 Mag Hydrox/Aluminum Hyd/Simeth (Maalox Advanced Suspension) 200 Mg-200 Mg-20 Mg/5 Ml Oral.susp, 30 ML PO Q4HPRN PRN for ABDOMINAL PAIN, #335 ML 0 Refills Prov:AMANDA RCUMP 07/03/23 Ondansetron (Ondansetron Odt) 4 Mg Tab.rapdis, 4 MG PO Q6HPRN PRN for nausea, # 12 TAB 0 Refills Prov:AMANDA CRUMP 07/03/23 Famotidine (Pepcid) 20 Mg Tablet, 1 TAB PO BID, #14 TAB 0 Refills Prov:AMANDA CRUMP 07/03/23 Lactulose (Kristalose) 20 Gram Packet, 20 GM PO HS, #7 PKT Prov:RAFA ROMERO 07/03/23 Metoclopramide HCl (Reglan) 10 Mg Tablet, 10 MG PO TIDP, #20 TAB 0 Refills Prov:EULALIA UPTON MD 03/18/21 Dicyclomine HCl (Bentyl) 20 Mg Tab, 20 MG PO Q6HPRN, #20 TAB 0 Refills Prov:EULALIA UPTON MD 03/18/21 Pantoprazole Sodium (Protonix) 40 Mg Tablet.dr, 40 MG PO DAILY, #10 TAB 0 Refills Prov:EULALIA UPTON MD 03/18/21 Ondansetron (Ondansetron Odt) 4 Mg Tab.rapdis, 4 MG PO Q6HPRN, #20 TAB 0 Refills Prov:EULALIA UPTON MD 03/18/21 Ferrous Sulfate (Ferrous Sulfate) 325 Mg Tablet, 325 MG PO DAILY, #30 TAB 2 Refills Prov:THELMA KING NP 02/26/21 Norgestimate-Ethinyl Estradiol (Ortho Tri-Cyclen) 1 Each Tablet, 1 EACH PO DAILY, #30 TAB 3 Refills Prov:HTELMA KING NP 02/26/21 Clotrimazole (Lotrimin 1% Cream) 1 Appl/Gm Crm, 1 APPL TP BID, #30 GM Prov:KATHIE REVELES 12/14/20 Famotidine (Pepcid) 20 Mg Tablet, 20 MG PO BID, #30 TAB Prov:GARIMA SALAZAR MD 09/10/14 Ciprofloxacin HCl (Ciprofloxacin HCl) 500 Mg Tablet, 500 MG PO BID, #14 TAB Prov:GARIMA SALAZAR MD 09/10/14 Metronidazole (Flagyl) 500 Mg Tablet, 500 MG PO BID, #14 TAB Prov:GARIMA SALAZAR MD 09/10/14 Past Medical History Past Medical History: No Pertinent History Additional Past Medical Hx: 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 Surgical History: Cholecystectomy, Surgical History Other: x6 Family History: Negative Social History: Negative, Lives with family History: Not Applicable RN Note Reviewed/Agreed w/PFSH: Yes Review of System Dictation CONSTITUTIONAL: NEGATIVE EXCEPT FOR HPI HEAD/FACE: NEGATIVE EXCEPT FOR HPI EENT: NEGATIVE EXCEPT FOR HPI CHOKING SENSATION/FOREIGN BODY SENSATION IN THROAT RESPIRATORY: NEGATIVE EXCEPT FOR HPI GASTROINTESTINAL/ABDOMINAL: NEGATIVE EXCEPT FOR HPI GENITOURINARY: NEGATIVE EXCEPT FOR HPI MUSCULOSKELETAL: NEGATIVE EXCEPT FOR HPI INTEGUMENTARY: NEGATIVE EXCEPT FOR HPI NEUROLOGICAL/PSYCH: NEGATIVE EXCEPT FOR HPI HEMATOLOGIC/LYMPHATIC: NEGATIVE EXCEPT FOR HPI ALL SYSTEMS NEGATIVE, EXCEPT NOTED ABOVE. 13 POINT REVIEW OF SYSTEMS ASSESSED AND ALL NEGATIVE EXCEPT FOR ABOVE. Initial Vital Sign VS Vital Signs Date Time Temp Pulse Resp B/P (MAP) Pulse Ox O2 Delivery O2 Flow Rate FiO2 07/26/24 00:43 98.2 78 17 125/84 100 Room Air 0 Physical Exam Dictation VITAL SIGNS REVIEWED GENERAL APPEARANCE: ALERT, ORIENTED X 3, MILD ANXIOUS ACUTE DISTRESS, WELL DEVELOPED, NOURISHED. HEAD AND FACE: NON-TRAUMATIC. EYES: PERRL, PINK CONJUNCTIVAS, EYELID NO TRAUMA, ANTERIOR CHAMBER WITH ARCUS SENILIS. EARS: PINNAS INTACT AND NO SIGNS OF TRAUMA OR ERYTHEMA EAR CANALS CLEAR AND NO DISCHARGE TM NO ERYTHEMA NOSE: NO DISCHARGE, NO BLEEDING. OROPHARYNX: MOUTH NORMAL, TONGUE PINK, VOICE IS CLEAR, PHARYNX CLEAR,NO ERYTHEMA, TONSILS NO EXUDATES, NO ABSCESSES NOTED, MUCOUS MEMBRANE MOIST NO STRIDOR WITH AUSCULTATION OF THROAT NECK: SUPPLE, NON-TENDER, NO THYROMEGALY, NO MASSES, NO JVD, NO BRUITS BREAST:DEFERRED CHEST:NO TENDERNESS, NO CREPITUS, NO PARADOXICAL MOVEMENT, NO RETRACTIONS LUNGS:CLEAR, WELL-VENTILATED, SYMMETRIC, NO RALES, NO WHEEZING, NO RHONCHI, NO STRIDOR, GOOD BREATH SOUNDS BILATERALLY BILATERAL BREATH SOUNDS CLEAR HEART: REGULAR RATE, REGULAR RHYTHM, NO MURMUR, NO GALLOPS VASCULAR: NO PERIPHERAL EDEMA, ABDOMEN: SOFT, POSITIVE BOWEL SOUNDS, NONDISTENDED, NO GUARDING, NONTENDER, NO REBOUND, NO MASSES NO HEPATOMEGALY, NO SPLENOMEGALY, NO MAURICE'S S IGN, NO HERNIAS. RECTAL: DEFERRED GENITAL: DEFERRED NEUROLOGICAL: NORMAL SPEECH, MOTOR FUNCTION INTACT, SENSORY FUNCTION INTACT MUSCULOSKELETAL: NECK NONTENDER, FULL RANGE OF MOTION, BACK NONTENDER, FULL RANGE OF MOTION, EXTREMITIES: NONTENDER, FULL RANGE OF MOTION SKIN: COLOR PINK, DRY, NO TURGOR, NO RASH, NO LACERATIONS, NO ABRASIONS, NO CONTUSIONS. LYMPHATIC: DEFERRED Results (Laboratory/Radiology) Labs Reviewed?: Yes ED Course ED Course Orders Procedure Category Date Status Time *Nursing CPOE 07/26/24 Transmitted Communication: 00:50 Mag/Alum/Simeth 30ml PHA 07/26/24 Complete (Maalox Plus 30ml) 01:00 0.9%Nacl 1000ml (Ns PHA 07/26/24 Complete 1000ml) 01:30 Glucagon 1mg Kit PHA 07/26/24 Complete (Glucagon 1mg Kit) 01:30 Ondansetron 4mg Inj PHA 07/26/24 Complete (Zofran 4mg Inj) 01:30 Current Medications Medications (Trade) Dose Ordered Sig/Shikha Route PRN Reason Start Time Stop Time Status Last Admin Dose Admin Al Hydroxide/Mg Hydroxide (MAALox PLUS 30ML) 30 ml ONCE ONCE PO 07/26/24 01:00 07/26/24 01:01 DC 07/26/24 00:59 Glucagon (Glucagon 1mg Kit) 1 mg ONCE ONCE IV 07/26/24 01:30 07/26/24 01:31 DC 07/26/24 01:24 Ondansetron HCl (zoFRAN 4MG INJ) 4 mg ONCE ONCE IVP 07/26/24 01:30 07/26/24 01:31 DC 07/26/24 01:24 Sodium Chloride 1,000 ml @ 0 mls/hr ONCE ONCE IV 07/26/24 01:30 07/26/24 01:31 DC 07/26/24 01:25 Vital Signs Date Time Temp Pulse Resp B/P (MAP) Pulse Ox O2 Delivery O2 Flow Rate FiO2 07/26/24 00:43 98.2 78 17 125/84 100 Room Air 0 0048/PATIENT JEWEL SWALLOWING WATER WITHOUT DIFFICULTY. VOICE REMAINS CLEAR MAALOX AND REASSESS 0205/patient able to tolerate p.o. fluids at this time. States she feels better in his asleep had to be aroused to perform fluid challenge. She will be discharged home Told to see her primary care doctor tomorrow or Saturday. Medical Decision Making MDM Medical discharge making based on treatment for esophageal abrasion. Patient tolerating p.o. fluids No nausea no vomiting at this Time. Feels better after treatment. DX & DISP Disposition: Discharge Departure Impression: Primary Impression: Sensation of foreign body in esophagus Condition: Stable Additional Instructions: Follow-up with primary care provider in 1 to 2 days. Take medications as direct ed here in the emergency room. Okay to continue home medications unless otherwise discussed during your visit in the emergency room today. Return to your nearest emergency room if symptoms worsen or if there is no improvement. Call 911 if you need immediate assistance. Take Tylenol or Motrin [id number] as needed and if no contraindications are present. Increase oral hydration. A wound culture or urine culture was ordered here in the emergency room department please follow-up with primary care provider and advise them to get repeat ports from our facility. If you had any Corbin wrap/splints that were applied here, please do not remove them until you see your primary care or specialty. Suggest Maalox/[id number]-kgkdtul 30 mL three to 4 times a day. Increase fluid intake. Referrals: SELF,REFERRAL (PCP) Time of Disposition: 02:12 I have reviewed the case, and I agree with, Diagnosis and Plan AFIA HOFFMAN NP Jul 26, 2024 00:53
[2024-07-26] MEDS: MAG/ALUM/SIMETH 30 ML UDCUP PO ONE (00:59)
--- NOTE | 2024-07-26 01:08 | NUR ---
PATIENT VOMITING AFTER ADMINISTRATION OF MAALOX
[2024-07-26] MEDS: GLUCAGON 1MG KIT 1 MG ML IV ONE (01:24)
[2024-07-26] MEDS: ondanSETRON 4MG INJ IVP ONE (01:24)
[2024-07-26] MEDS: 0.9%NACL 1000ML 1,000 ML IV ONE (01:25)
[2024-07-26 02:45] VITALS: BP 109/52; PULSE 89; RESP 16; TEMP 98.8; O2SAT 98
== END 2024-07-26 02:51 | disposition home or self-care (01) ==
LOC: EDH 00:38
DX: R09.A2 Foreign body sensation, throat (principal); Z79.899 Other long term (current) drug therapy; Z90.49 Acquired absence of other specified parts of digestive tract
CPT/HCPCS: 99284; 96374; 96375; J1610; J7030; J2405

== ENCOUNTER 2024-08-17 22:55 | Emergency (ER) | payer SELFPAY ==
[~2024-08-17] VITALS: Ht 154.9 cm; Wt 70.8 kg
[~2024-08-17 22:55] MED LIST changes: +IOHEXOL 350 MG/ML 100ML INFUS..BTL IV ONE
--- NOTE | 2024-08-17 23:22 | NUR ---
PT CARE ASSUMED AT THIS TIME
[2024-08-18 00:20] LABS: CREATININE 0.1 mg/dL (0.5-1.0); POTASSIUM 3.5 mmol/L (3.5-5.1)
[2024-08-18 00:25] LABS: ALBUMIN 3.2 g/dL (3.5-5.0); BILIRUBIN,DIRECT 0.1 mg/dL (0.0-0.3); BILIRUBIN,TOTAL 0.2 mg/dL (0.2-1.0); TOTAL PROTEIN, SERUM 8.5 g/dL (6.0-8.3)
[2024-08-18] MEDS ORDERED: IOHEXOL 350 MG/ML 100ML INFUS..BTL IV ONE (00:52)
[2024-08-18 00:59] LABS: BASOPHILS # (AUTO) 0.04 K/uL (0.00-0.20); BASOPHILS % (AUTO) 0.8 % (0.0-5.0); EOSINOPHILS # (AUTO) 0.42 K/uL (0.00-0.70); HEMATOCRIT 35.3 % (36-48); IMMATURE GRANULOCYTE ABSOLUTE 0.01 K/uL (0-1); LYMPHOCYTES # (AUTO) 1.7 K/uL (1.0-4.8); LYMPHOCYTES % (AUTO) 32.6 % (21.0-51.0); MEAN CORPUSCULAR HEMOGLOBIN 28.4 pg (27.0-33.0); MEAN CORPUSCULAR HGB CONC 31.4 g/dL (32.0-36.0); MEAN CORPUSCULAR VOLUME 90.3 fL (79-99); MONOCYTES # (AUTO) 0.4 K/uL (0.1-1.0); NEUTROPHILS # (AUTO) 2.6 K/uL (1.8-7.7); NEUTROPHILS % (AUTO) 50.4 % (40.0-77.0); PLATELET COUNT (AUTO) 191 K/uL (130-400); RED BLOOD CELL COUNT(AUTO) 3.91 MIL/uL (4.00-5.50); RED CELL DISTRIBUTION WIDTH 13.9 % (11.0-15.5); WHITE BLOOD COUNT (AUTO) 5.2 K/uL (4.8-10.8)
--- NOTE | 2024-08-18 01:28 | HMCIMG ---
CT ABDOMEN/PELVIS W/CONTRAST HISTORY: Right upper abdominal pain COMPARISON: None TECHNIQUE: Multiple sequential axial images of the abdomen and pelvis were obtained from the dome of the diaphragm through symphysis pubis. Patient was given 100 cc of Omnipaque through intravenous route. Oral contrast was not given. FINDINGS: No pleural effusion is seen bilaterally. There is no evidence of parenchymal disease or pulmonary nodule of the visualized lower lungs. Degenerative changes of the thoracolumbar spine are present. The heart is not enlarged. Postcholecystectomy changes are seen. A small hiatal hernia is seen. The liver, spleen, adrenal glands and pancreas are unremarkable. There is no evidence of hydronephrosis bilaterally. No evidence of renal stone is seen. Fecal material is seen in the colon. There are normal size retroperitoneal and mesenteric lymph nodes. No ascites is seen. No CT evidence of acute appendicitis is seen. There is mild diverticulosis. Pelvic sidewalls are symmetric bilaterally. Bladder is well distended without wall thickening. IMPRESSION: 1. Mild diverticulosis. No ascites is seen. Fecal material in the colon. CT was performed with one or more following dose reduction techniques: automated exposure control, adjustment of the mA and kv according to patient's size, or use of a iterative reconstruction technique.
[2024-08-18] MEDS: LIDOCAINE HCL 2% VISCOUS 15 ML UDCUP PO ONE (02:36)
[2024-08-18] MEDS: MAG/ALUM/SIMETH 30 ML UDCUP PO ONE (02:36)
[2024-08-18] MEDS: ondanSETRON 4MG INJ IVP ONE (02:38)
[2024-08-18] MEDS: morPHINE 2 MG SYG IVP ONE (02:38)
[2024-08-18] MEDS: FAMOTIDINE 20MG VIAL IV ONE (02:38)
[2024-08-18] MEDS ORDERED: FAMO-136 PO (02:59)
[2024-08-18] MEDS ORDERED: ONDA-243 PO (02:59)
--- NOTE | 2024-08-18 03:00 | ERN ---
General Chief Complaint: Cough Stated Complaint: HEMOPTYSIS Time Seen by : 23:13 Time Seen by Midlevel: 23:13 Source: patient History of Present Illness Initial Comments Patient is a 53-year-old female presenting to the emergency department after she had one episode of which she believes was hemoptysis. She reports associated midepigastric abdominal pain worse with deep inspiration. Denies any nausea, vomiting, fever, chills, or any other symptoms at this time. She specifically denies any black tarry stools or bright red bleeding in the stools. Allergies: Coded Allergies: No Known Drug Allergies (Unverified Allergy, Unknown, 07/13/19) Uncoded Allergies: NKDA (Allergy, Unknown, 09/03/13) Home Meds Active Scripts Loratadine (Loratadine) 10 Mg Tablet, 1 TAB PO DAILY for allergy symptoms for 30 Days, #30 TAB 0 Refills Prov:CAMILLA MÉNDEZ MD 07/05/24 Fluticasone Propionate (Flonase Nasal [place]) 50 Mcg/Actuation [place], 2 SPRAY NS DAILY, #16 GM 0 Refills Prov:CAMILLA MÉNDEZ MD 07/05/24 Ibuprofen (Ibuprofen 800 mg Tab) 800 Mg Tab, 800 MG PO Q6H PRN for PAIN, #30 TAB Prov:AFIA HOFFMAN MANAGER PULMONARY 08/11/23 Clindamycin HCl (Clindamycin HCl) 300 Mg Capsule, 1 CAP PO QID for 10 Days, #40 CAP 0 Refills Prov:AFIA HOFFMAN MANAGER PULMONARY 08/11/23 Mag Hydrox/Aluminum Hyd/Simeth (Maalox Advanced Suspension) 200 Mg-200 Mg-20 Mg/5 Ml Oral.susp, 30 ML PO Q4HPRN PRN for ABDOMINAL PAIN, #335 ML 0 Refills Prov:AMANDA CRUMP 07/03/23 Ondansetron (Ondansetron Odt) 4 Mg Tab.rapdis, 4 MG PO Q6HPRN PRN for nausea, #12 TAB 0 Refills Prov:AMANDA CRUMP 07/03/23 Famotidine (Pepcid) 20 Mg Tablet, 1 TAB PO BID, #14 TAB 0 Refills Prov:AMANDA CRUMP 07/03/23 Lactulose (Kristalose) 20 Gram Packet, 20 GM PO HS, #7 PKT Prov:NICKRAFA BARBER V SAUSAGE CUTTER 07/03/23 Metoclopramide HCl (Reglan) 10 Mg Tablet, 10 MG PO TIDP, #20 TAB 0 Refills Prov:EULALIA UPTON MD 03/18/21 Dicyclomine HCl (Bentyl) 20 Mg Tab, 20 MG PO Q6HPRN, #20 TAB 0 Refills Prov:EULALIA UPTON MD 03/18/21 Pantoprazole Sodium (Protonix) 40 Mg Tablet.dr, 40 MG PO DAILY, #10 TAB 0 Refills Prov:EULALIA UPTON MD 03/18/21 Ondansetron (Ondansetron Odt) 4 Mg Tab.rapdis, 4 MG PO Q6HPRN, #20 TAB 0 Refills Prov:EULALIA UPTON MD 03/18/21 Ferrous Sulfate (Ferrous Sulfate) 325 Mg Tablet, 325 MG PO DAILY, #30 TAB 2 Refills Prov:THELMA KING NP 02/26/21 Norgestimate-Ethinyl Estradiol (Ortho Tri-Cyclen) 1 Each Tablet, 1 EACH PO DAILY, #30 TAB 3 Refills Prov:THELMA KING NP 02/26/21 Clotrimazole (Lotrimin 1% Cream) 1 Appl/Gm Crm, 1 APPL TP BID, #30 GM Prov:KATHIE REVELES 12/14/20 Famotidine (Pepcid) 20 Mg Tablet, 20 MG PO BID, #30 TAB Prov:GARIMA SALAZAR MD 09/10/14 Ciprofloxacin HCl (Ciprofloxacin HCl) 500 Mg Tablet, 500 MG PO BID, #14 TAB Prov:GARIMA SALAZAR MD 09/10/14 Metronidazole (Flagyl) 500 Mg Tablet, 500 MG PO BID, #14 TAB Prov:GARIMA SALAZAR MD 09/10/14 Past Medical History Past Medical History: No Pertinent History Medical History Other: 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 Past Surgical History: Cholecystectomy, Surgical History Other: x6 Family History Family History: Negative Social History Social History: Negative, Lives with family Female( History) History: Not Applicable ROS Dictation CONSTITUTIONAL: Negative except for HPI HEAD/FACE: Negative except for HPI EENT: Negative except for HPI RESPIRATORY: Negative except for HPI GASTROINTESTINAL/ABDOMINAL: Negative except for HPI GENITOURINARY: Negative except for HPI MUSCULOSKELETAL: Negative except for HPI INTEGUMENTARY: Negative except for HPI NEUROLOGICAL/PSYCH: Negative except for HPI HEMATOLOGIC/LYMPHATIC: Negative except for HPI All Systems Negative, Except as noted above. 13 point review of systems assessed and all negative except for above. Physical Exam Physical Exam Dictation Vital Signs reviewed General Appearance: Alert, oriented x 3, no acute distress, well developed, nourished. Head and Face: non-traumatic. Eyes: PERRL, pink conjunctivas, eyelid no trauma, anterior chamber with arcus senilis. Ears: Pinnas intact and no signs of trauma or erythema ear canals clear and no discharge TM no erythema Nose: No discharge, no bleeding. Oropharynx: Mouth normal, tongue pink, pharynx clear,no erythema, tonsils no exudates, no abscesses noted, mucous membrane moist Neck: Supple, non-tender, no thyromegaly, no masses, no JVD, no bruits Breast:Deferred Chest:No tenderness, no crepitus, no paradoxical movement, no retractions Lungs:Clear, well-ventilated, symmetric, no rales, no wheezing, no rhonchi, no stridor, good breath sounds bilaterally Heart: Regular rate, regular rhythm, no murmur, no gallops Vascular: no peripheral edema, Abdomen: Soft, positive bowel sounds, nondistended, no guarding, nontender, no rebound, no masses no hepatomegaly, no splenomegaly, no Masters's sign, no hernias. Rectal: Deferred Genital: Deferred Neurological: Normal speech, motor function intact, sensory function intact Musculoskeletal: Neck nontender, full range of motion, back nontender, full range of motion, Extremities: nontender, full range of motion Skin: Color pink, dry, no turgor, no rash, no lacerations, no abrasions, no contusions. Lymphatic: Deferred Results Laboratory and Microbiology Lab and Micro Result Laboratory Tests Test 08/18/24 00:03 White Blood Count 5.2 K/uL (4.8-10.8) Red Blood Count 3.91 MIL/uL (4.00-5.50) L Hemoglobin 11.1 g/dL (12.0-16.0) L Hematocrit 35.3 % (36-48) L Mean Corpuscular Volume 90.3 fL (79-99) Mean Corpuscular Hemoglobin 28.4 pg (27.0-33.0) Mean Corpuscular Hemoglobin Concent 31.4 g/dL (32.0-36.0) L Red Cell Distribution Width 13.9 % (11.0-15.5) Platelet Count 191 K/uL (130-400) Mean Platelet Volume 11.1 fL (7.5-10.5) H Immature Granulocyte % (Auto) 0.2 % (0-1) Neutrophils (%) (Auto) 50.4 % (40.0-77.0) Lymphocytes (%) (Auto) 32.6 % (21.0-51.0) Monocytes (%) (Auto) 8.0 % (3.0-13.0) Eosinophils (%) (Auto) 8.0 % (0.0-8.0) Basophils (%) (Auto) 0.8 % (0.0-5.0) Neutrophils # (Auto) 2.6 K/uL (1.8-7.7) Lymphocytes # (Auto) 1.7 K/uL (1.0-4.8) Monocytes # (Auto) 0.4 K/uL (0.1-1.0) Eosinophils # (Auto) 0.42 K/uL (0.00-0.70) Basophils # (Auto) 0.04 K/uL (0.00-0.20) Absolute Immature Granulocyte (auto 0.01 K/uL (0-1) Nucleated Red Blood Cells 0.0 % (0.0-0.19) Sodium Level 142 mmol/L (136-145) Potassium Level 3.5 mmol/L (3.5-5.1) Chloride Level 108 mmol/L (101-111) Carbon Dioxide Level 28 mmol/L (21-32) Blood Urea Nitrogen 17 mg/dL (7-18) Creatinine 0.1 mg/dL (0.5-1.0) L Glomerular Filtration Rate Calc 167 mL/min (>90) Random Glucose 98 mg/dL (70-105) Total Calcium 8.9 mg/dL (8.5-10.1) Total Bilirubin 0.2 mg/dL (0.2-1.0) Direct Bilirubin 0.1 mg/dL (0.0-0.3) Aspartate Amino Transf (AST/SGOT) 28 U/L (10-37) Alanine Aminotransferase (ALT/SGPT) 21 U/L (12-78) Alkaline Phosphatase 126 U/L (50-136) Troponin I High Sensitivity < 4 ng/L (4-50) L Total Protein 8.5 g/dL (6.0-8.3) H Albumin 3.2 g/dL (3.5-5.0) L Lipase 53 U/L (16-77) Labs Reviewed?: Yes MDM MDM: Differential diagnosis: Upper GI bleed, pneumonia, hemoptysis There are no social concerns with this patient. Prescription drug management Prescriptions will include: None Medical management and examination interpretation discussions were had by me with other qualified healthcare professionals as indicated for the patient's care. ED Course Orders Procedure Category Date Status Time 12 Lead Ekg Tracing- EKG 08/17/24 Logged Technical 23:35 Cbc With Differential LAB 08/17/24 Complete 23:35 Basic Metabolic Panel LAB 08/17/24 Complete 23:35 Troponin I High LAB 08/17/24 Complete Sensitivity 23:35 Hepatic Function Panel LAB 08/17/24 Complete 23:35 Lipase LAB 08/17/24 Complete 23:35 Chest 1vw RAD 08/17/24 Taken 23:35 Ct Abdomen/Pelvis CT 08/17/24 Resulted W/Contrast 23:35 Iohexol (Omnipaque) PHA 08/18/24 Complete 00:52 Ondansetron 4mg Inj PHA 08/18/24 Complete (Zofran 4mg Inj) 02:00 Lidocaine Hcl 2% PHA 08/18/24 Complete Viscous (Lidocaine Hcl 02:00 Mag/Alum/Simeth 30ml PHA 08/18/24 Complete (Maalox Plus 30ml) 02:00 Famotidine 20mg Vial PHA 08/18/24 Complete (Pepcid 20mg Vial) 02:00 Morphine 2mg Syg PHA 08/18/24 Complete (Morphine 2mg Syg) 02:00 Current Medications Medications (Trade) Dose Ordered Sig/Shikha Route PRN Reason Start Time Stop Time Status Last Admin Dose Admin Al Hydroxide/Mg Hydroxide (MAALox PLUS 30ML) 30 ml ONCE ONCE PO 08/18/24 02:00 08/18/24 02:01 DC 08/18/24 02:36 Famotidine (Pepcid 20mg Vial) 20 mg ONCE ONCE IV 08/18/24 02:00 08/18/24 02:01 DC 08/18/24 02:38 Iohexol (Omnipaque) 35,000 mg STK-MED ONCE IV 08/18/24 00:52 08/18/24 00:53 DC Lidocaine HCl (Lidocaine HCl 2% Viscous) 10 ml ONCE ONCE PO 08/18/24 02:00 08/18/24 02:01 DC 08/18/24 02:36 Morphine Sulfate (morPHINE 2MG SYG) 1 mg ONCE ONCE IVP 08/18/24 02:00 08/18/24 02:01 DC 08/18/24 02:38 Ondansetron HCl (zoFRAN 4MG INJ) 4 mg ONCE ONCE IVP 08/18/24 02:00 08/18/24 02:01 DC 08/18/24 02:38 Vital Signs Date Time Temp Pulse Resp B/P (MAP) Pulse Ox O2 Delivery O2 Flow Rate FiO2 08/17/24 23:33 98.1 72 18 135/60 100 Room Air* 0 21 08/17/24 22:58 97.5 80 18 134/76 99 Room Air 0 08/17/24 22:58 97.5 80 18 134/76 99 Room Air* 0 21 DX & DISP Disposition: Discharge Departure Impression: Primary Impression: Hemoptysis Additional Impression: Peptic ulcer disease Condition: Stable Scripts Famotidine (Pepcid) 20 Mg Tablet 1 TAB PO BID for 30 Days, #60 TAB 0 Refills Prov: ROWENA VILLALOBOS 08/18/24 Ondansetron (Ondansetron Odt) 4 Mg Tab.rapdis 4 MG PO BID for 7 Days, #14 TAB Prov: ROWENA VILLALOBOS 08/18/24 Additional Instructions: Your hemoglobin is 11.1 which is stable when compared to previous. The remainder of your blood work today is unremarkable. Your chest x-ray is normal. Your CT scan reveals no acute abnormality. Your symptoms may be related to peptic ulcer. You will need to follow up with your primary care doctor in 2-3 days for repeat evaluation. Referrals: SELF,REFERRAL (PCP) I have reviewed the case, and I agree with, Diagnosis and Plan I performed the substantive portion of the visit. I have reviewed and personally made and approve the management plan that is documented in the note by myself or the KEN. I acknowledge for responsibility for the patient's management plan. ROWENA VILLALOBOS August 18, 2024 03:00
[2024-08-18 03:22] VITALS: BP 125/63; PULSE 80; RESP 19; TEMP 98; O2SAT 100
--- NOTE | 2024-08-18 07:52 | EKG ---
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
--- NOTE | 2024-08-18 09:04 | HMCIMG ---
Exam Type: CHEST 1VW Clinical Information: sob Comparison: None Findings: The lungs are clear of infiltrates. The heart is normal in size. The bony and soft tissue structures of the chest are unremarkable. Impression: Clear lungs.
== END 2024-08-18 03:43 | disposition home or self-care (01) ==
LOC: EDH 22:55
DX: R04.2 Hemoptysis (principal); K27.9 Peptic ulcer, site unspecified, unspecified as acute or chronic, without hemorrhage or perforation; Z79.899 Other long term (current) drug therapy; Z90.49 Acquired absence of other specified parts of digestive tract
CPT/HCPCS: 99285; 74177; 71045; 80076; 84484; 80048; 83690; 85025; 36415; 93005; 96374; 96375; Q9967; J3490; J2270; J2405

== ENCOUNTER 2024-09-01 18:59 | Emergency (ER) | payer SELFPAY ==
[~2024-09-01] VITALS: Ht 157.5 cm; Wt 69.4 kg
[~2024-09-01 18:59] MED LIST changes: +CIPR-478 PO; -CIPR500T10 PO; -IOHEXOL 350 MG/ML 100ML INFUS..BTL IV ONE
--- NOTE | 2024-09-01 20:23 | EKG ---
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
[2024-09-01 20:32] LABS: BASOPHILS # (AUTO) 0.02 K/uL (0.00-0.20); BASOPHILS % (AUTO) 0.4 % (0.0-5.0); EOSINOPHILS # (AUTO) 0.22 K/uL (0.00-0.70); EOSINOPHILS % (AUTO) 4.7 % (0.0-8.0); HEMATOCRIT 32.8 % (36-48); IMMATURE GRANULOCYTE ABSOLUTE 0.01 K/uL (0-1); LYMPHOCYTES # (AUTO) 1.5 K/uL (1.0-4.8); LYMPHOCYTES % (AUTO) 30.9 % (21.0-51.0); MEAN CORPUSCULAR HGB CONC 32.3 g/dL (32.0-36.0); MEAN CORPUSCULAR VOLUME 89.6 fL (79-99); MONOCYTES # (AUTO) 0.4 K/uL (0.1-1.0); MONOCYTES % (AUTO) 7.8 % (3.0-13.0); NEUTROPHILS # (AUTO) 2.6 K/uL (1.8-7.7); PLATELET COUNT (AUTO) 211 K/uL (130-400); RED BLOOD CELL COUNT(AUTO) 3.66 MIL/uL (4.00-5.50); RED CELL DISTRIBUTION WIDTH 13.6 % (11.0-15.5); WHITE BLOOD COUNT (AUTO) 4.7 K/uL (4.8-10.8)
[2024-09-01 20:42] LABS: APPEARANCE,URINE CLEAR (CLEAR); BILIRUBIN,URINE NEGATIVE (NEGATIVE); COLOR,URINE LIGHT-YELLOW (YELLOW); GLUCOSE, URINE (UA) NEGATIVE (NEGATIVE); KETONES,URINE NEGATIVE (NEGATIVE); LEUKOCYTE ESTERASE ,URINE NEGATIVE Leu/uL (NEGATIVE); NITRATE,URINE NEGATIVE (NEGATIVE); OCCULT BLOOD,URINE NEGATIVE (NEGATIVE); PROTEIN,URINE NEGATIVE (NEGATIVE); UROBILINOGEN,URINE 0.2 mg/dL (0.2-1.0)
[2024-09-01 20:44] LABS: ADD UA MICROSCOPIC NO
[2024-09-01 20:44] LABS: CREATININE 0.8 mg/dL (0.5-1.0); POTASSIUM 3.8 mmol/L (3.5-5.1)
[2024-09-01 20:54] LABS: ALBUMIN 3.3 g/dL (3.5-5.0); BILIRUBIN,DIRECT 0.1 mg/dL (0.0-0.3); BILIRUBIN,TOTAL 0.1 mg/dL (0.2-1.0); TOTAL PROTEIN, SERUM 8.5 g/dL (6.0-8.3)
[2024-09-01] MEDS: ondanSETRON 4MG INJ IVP ONE ×2 (21:50→23:04)
[2024-09-01] MEDS: FAMOTIDINE 20MG VIAL IV ONE (21:50)
[2024-09-01] MEDS: morPHINE 2 MG SYG IVP ONE (23:04)
[2024-09-01] MEDS: MAG/ALUM/SIMETH 30 ML UDCUP PO ONE (23:04)
[2024-09-01] MEDS: LIDOCAINE HCL 2% VISCOUS 15 ML UDCUP PO ONE (23:04)
[2024-09-01] MEDS ORDERED: IOHEXOL 350 MG/ML 100ML INFUS..BTL IV ONE (23:12)
--- NOTE | 2024-09-01 23:41 | HMCIMG ---
CT ABDOMEN/PELVIS W/CONTRAST HISTORY: Mid epigastric abdominal pain COMPARISON: None TECHNIQUE: Multiple sequential axial images of the abdomen and pelvis were obtained from the dome of the diaphragm through symphysis pubis. Patient was not given contrast through intravenous route. Oral contrast was not given. FINDINGS: No pleural effusion is seen bilaterally. There is no evidence of parenchymal disease or pulmonary nodule of the visualized lower lungs. Degenerative changes of the thoracolumbar spine are present. The heart is not enlarged. Postcholecystectomy changes are seen. Minimal small bowel dilatation is seen in the small bowel wall thickening related to enteritis. There is diverticulosis. The liver, spleen, adrenal glands and pancreas are unremarkable. There is no evidence of hydronephrosis bilaterally. No evidence of renal stone is seen. Fecal material is seen in the colon. There are normal size retroperitoneal and mesenteric lymph nodes. No ascites is seen. Atherosclerotic changes are present. Pelvic sidewalls are symmetric bilaterally. Bladder is well distended without wall thickening. IMPRESSION: 1. Minimal small bowel dilatation is seen in the small bowel wall thickening related to enteritis. There is diverticulosis. CT was performed with one or more following dose reduction techniques: automated exposure control, adjustment of the mA and kv according to patient's size, or use of a iterative reconstruction technique.
--- NOTE | 2024-09-02 00:24 | ERN ---
General Chief Complaint: Abdominal Pain Stated Complaint: ABDOMINAL PAIN Time Seen by MD: 19:18 Time Seen by Midlevel: 19:18 Source: patient History of Present Illness Initial Comments Patient is a 53-year-old female presenting to the emergency department with midepigastric abdominal pain. The midepigastric abdominal pain has been ongoing for several weeks and progressively worsening. The pain worsens after eating. Patient was seen in the emergency department approximately one month ago for similar symptoms but was ultimately discharged home. She did not follow up with the primary care doctor. Allergies: Coded Allergies: No Known Drug Allergies (Unverified Allergy, Unknown, 07/13/19) Uncoded Allergies: NKDA (Allergy, Unknown, 09/03/13) Home Meds Active Scripts Famotidine (Pepcid) 20 Mg Tablet, 1 TAB PO BID for 30 Days, #60 TAB 0 Refills Prov:ROWENA VILLALOBOS 08/18/24 Ondansetron (Ondansetron Odt) 4 Mg Tab.rapdis, 4 MG PO BID for 7 Days, #14 TAB Prov:ROWENA VILLALOBOS 08/18/24 Loratadine (Loratadine) 10 Mg Tablet, 1 TAB PO DAILY for allergy symptoms for 30 Days, #30 TAB 0 Refills Prov:CAMILLA MÉNDEZ MD 07/05/24 Fluticasone Propionate (Flonase Nasal [place]) 50 Mcg/Actuation [place], 2 SPRAY NS DAILY, #16 GM 0 Refills Prov:CAMILLA MÉNDEZ MD 07/05/24 Ibuprofen (Ibuprofen 800 mg Tab) 800 Mg Tab, 800 MG PO Q6H PRN for PAIN, #30 TAB Prov:AFIA HOFFMAN NP 08/11/23 Clindamycin HCl (Clindamycin HCl) 300 Mg Capsule, 1 CAP PO QID for 10 Days, #40 CAP 0 Refills Prov:AFIA HOFFMAN NP 08/11/23 Mag Hydrox/Aluminum Hyd/Simeth (Maalox Advanced Suspension) 200 Mg-200 Mg-20 Mg/5 Ml Oral.susp, 30 ML PO Q4HPRN PRN for ABDOMINAL PAIN, #335 ML 0 Refills Prov:AMANDA CRUMP 07/03/23 Ondansetron (Ondansetron Odt) 4 Mg Tab.rapdis, 4 MG PO Q6HPRN PRN for nausea, #12 TAB 0 Refills Prov:AMANDA CRUMP PROFILER OPERATOR 07/03/23 Famotidine (Pepcid) 20 Mg Tablet, 1 TAB PO BID, #14 TAB 0 Refills Prov:AMANDA CRUMP PROFILER OPERATOR 07/03/23 Lactulose (Kristalose) 20 Gram Packet, 20 GM PO HS, #7 PKT Prov:RAFA ROMERO V PROFILER OPERATOR 07/03/23 Metoclopramide HCl (Reglan) 10 Mg Tablet, 10 MG PO TIDP, #20 TAB 0 Refills Prov:EULALIA UPTON MD 03/18/21 Dicyclomine HCl (Bentyl) 20 Mg Tab, 20 MG PO Q6HPRN, #20 TAB 0 Refills Prov:EULALIA UPTON MD 03/18/21 Pantoprazole Sodium (Protonix) 40 Mg Tablet.dr, 40 MG PO DAILY, #10 TAB 0 Refill s Prov:EULALIA UPTON MD 03/18/21 Ondansetron (Ondansetron Odt) 4 Mg Tab.rapdis, 4 MG PO Q6HPRN, #20 TAB 0 Refills Prov:EULALIA UPTON MD 03/18/21 Ferrous Sulfate (Ferrous Sulfate) 325 Mg Tablet, 325 MG PO DAILY, #30 TAB 2 Refills Prov:THELMA KING NP 02/26/21 Norgestimate-Ethinyl Estradiol (Ortho Tri-Cyclen) 1 Each Tablet, 1 EACH PO DAILY, #30 TAB 3 Refills Prov:THELMA KING NP 02/26/21 Clotrimazole (Lotrimin 1% Cream) 1 Appl/Gm Crm, 1 APPL TP BID, #30 GM Prov:KATHIE REVELES 12/14/20 Famotidine (Pepcid) 20 Mg Tablet, 20 MG PO BID, #30 TAB Prov:GARIMA SALAZAR MD 09/10/14 Ciprofloxacin HCl (Ciprofloxacin HCl) 500 Mg Tablet, 500 MG PO BID, #14 TAB Prov:GARIMA SALAZAR MD 09/10/14 Metronidazole (Flagyl) 500 Mg Tablet, 500 MG PO BID, #14 TAB Prov:GARIMA SALAZAR MD 09/10/14 Past Medical History Past Medical History: No Pertinent History Medical History Other: 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 Past Surgical History: Cholecystectomy, Surgical History Other: x6 Family History Family History: Negative Social History Social History: Negative, Lives with family Female( History) History: Not Applicable ROS Dictation CONSTITUTIONAL: Negative except for HPI HEAD/FACE: Negative except for HPI EENT: Negative except for HPI RESPIRATORY: Negative except for HPI GASTROINTESTINAL/ABDOMINAL: Negative except for HPI GENITOURINARY: Negative except for HPI MUSCULOSKELETAL: Negative except for HPI INTEGUMENTARY: Negative except for HPI NEUROLOGICAL/PSYCH: Negative except for HPI HEMATOLOGIC/LYMPHATIC: Negative except for HPI All Systems Negative, Except as noted above. 13 point review of systems assessed and all negative except for above. Physical Exam Physical Exam Dictation Vital Signs reviewed General Appearance: Alert, oriented x 3, no acute distress, well developed, n ourished. Head and Face: non-traumatic. Eyes: PERRL, pink conjunctivas, eyelid no trauma, anterior chamber with arcus senilis. Ears: Pinnas intact and no signs of trauma or erythema ear canals clear and no discharge TM no erythema Nose: No discharge, no bleeding. Oropharynx: Mouth normal, tongue pink, pharynx clear,no erythema, tonsils no exudates, no abscesses noted, mucous membrane moist Neck: Supple, non-tender, no thyromegaly, no masses, no JVD, no bruits Breast:Deferred Chest:No tenderness, no crepitus, no paradoxical movement, no retractions Lungs:Clear, well-ventilated, symmetric, no rales, no wheezing, no rhonchi, no stridor, good breath sounds bilaterally Heart: Regular rate, regular rhythm, no murmur, no gallops Vascular: no peripheral edema, Abdomen: Soft, positive bowel sounds, nondistended, no guarding, Midepigastric abdominal tenderness, no rebound, no masses no hepatomegaly, no splenomegaly, no Masters's sign, no hernias. Rectal: Deferred Genital: Deferred Neurological: Normal speech, motor function intact, sensory function intact Musculoskeletal: Neck nontender, full range of motion, back nontender, full range of motion, Extremities: nontender, full range of motion Skin: Color pink, dry, no turgor, no rash, no lacerations, no abrasions, no contusions. Lymphatic: Deferred Results Laboratory and Microbiology Lab and Micro Result Laboratory Tests Test 09/01/24 19:51 09/01/24 20:27 Urine Color LIGHT-YELLOW (YELLOW) Urine Appearance CLEAR (CLEAR) Urine pH 6.0 (5.0-8.0) Urine Specific [place] 1.020 (1.001-1.031) Urine Protein NEGATIVE mg/dL (NEGATIVE) Urine Glucose (UA) NEGATIVE mg/dL (NEGATIVE) Urine Ketones NEGATIVE mg/dL (NEGATIVE) Urine Occult Blood NEGATIVE (NEGATIVE) Urine Nitrate NEGATIVE (NEGATIVE) Urine Bilirubin NEGATIVE mg/dL (NEGATIVE) Urine Urobilinogen 0.2 mg/dL (0.2-1.0) Urine Leukocyte Esterase NEGATIVE Rex/uL White Blood Count 4.7 K/uL (4.8-10.8) L Red Blood Count 3.66 MIL/uL (4.00-5.50) L Hemoglobin 10.6 g/dL (12.0-16.0) L Hematocrit 32.8 % (36-48) L Mean Corpuscular Volume 89.6 fL (79-99) Mean Corpuscular Hemoglobin 29.0 pg (27.0-33.0) Mean Corpuscular Hemoglobin Concent 32.3 g/dL (32.0-36.0) Red Cell Distribution Width 13.6 % (11.0-15.5) Platelet Count 211 K/uL (130-400) Mean Platelet Volume 11.1 fL (7.5-10.5) H Immature Granulocyte % (Auto) 0.2 % (0-1) Neutrophils (%) (Auto) 56.0 % (40.0-77.0) Lymphocytes (%) (Auto) 30.9 % (21.0-51.0) Monocytes (%) (Auto) 7.8 % (3.0-13.0) Eosinophils (%) (Auto) 4.7 % (0.0-8.0) Basophils (%) (Auto) 0.4 % (0.0-5.0) Neutrophils # (Auto) 2.6 K/uL (1.8-7.7) Lymphocytes # (Auto) 1.5 K/uL (1.0-4.8) Monocytes # (Auto) 0.4 K/uL (0.1-1.0) Eosinophils # (Auto) 0.22 K/uL (0.00-0.70) Basophils # (Auto) 0.02 K/uL (0.00-0.20) Absolute Immature Granulocyte (auto 0.01 K/uL (0-1) Nucleated Red Blood Cells 0.0 % (0.0-0.19) Sodium Level 144 mmol/L (136-145) Potassium Level 3.8 mmol/L (3.5-5.1) Chloride Level 107 mmol/L (101-111) Carbon Dioxide Level 29 mmol/L (21-32) Blood Urea Nitrogen 18 mg/dL (7-18) Creatinine 0.8 mg/dL (0.5-1.0) Glomerular Filtration Rate Calc 89 mL/min (>90) Random Glucose 98 mg/dL (70-105) Total Calcium 8.8 mg/dL (8.5-10.1) Total Bilirubin 0.1 mg/dL (0.2-1.0) L Direct Bilirubin 0.1 mg/dL (0.0-0.3) Aspartate Amino Transf (AST/SGOT) 26 U/L (10-37) Alanine Aminotransferase (ALT/SGPT) 22 U/L (12-78) Alkaline Phosphatase 105 U/L (50-136) Troponin I High Sensitivity < 4 ng/L (4-50) L Total Protein 8.5 g/dL (6.0-8.3) H Albumin 3.3 g/dL (3.5-5.0) L Lipase 59 U/L (16-77) Labs Reviewed?: Yes MDM MDM: Differential diagnosis: Gastritis, gastroenteritis, pancreatitis There are no social concerns with this patient. Prescription drug management Prescriptions will include: Zofran, Pepcid Medical management and examination interpretation discussions were had by me with other qualified healthcare professionals as indicated for the patient's care. ED Course Orders Procedure Category Date Status Time Cbc With Differential LAB 09/01/24 Complete 20:14 Basic Metabolic Panel LAB 09/01/24 Complete 20:14 Hepatic Function Panel LAB 09/01/24 Complete 20:14 Lipase LAB 09/01/24 Complete 20:14 Urinalysis Profile LAB 09/01/24 Complete 20:14 Troponin I High LAB 09/01/24 Complete Sensitivity 20:14 12 Lead Ekg Tracing- EKG 09/01/24 Resulted Technical 20:14 Ondansetron 4mg Inj PHA 09/01/24 Complete (Zofran 4mg Inj) 20:30 Famotidine 20mg Vial PHA 09/01/24 Complete (Pepcid 20mg Vial) 20:30 Pantoprazole 40mg Inj PHA 09/01/24 Complete (Protonix 40mg Inj 23:00 Morphine 2mg Syg PHA 09/01/24 Complete (Morphine 2mg Syg) 23:00 Ct Abdomen/Pelvis CT 09/01/24 Resulted W/Contrast 22:51 Ondansetron 4mg Inj PHA 09/01/24 Complete (Zofran 4mg Inj) 23:00 Lidocaine Hcl 2% PHA 09/01/24 Complete Viscous (Lidocaine Hcl 23:00 Mag/Alum/Simeth 30ml PHA 09/01/24 Complete (Maalox Plus 30ml) 23:00 Iohexol (Omnipaque) PHA 09/01/24 Complete 23:12 Current Medications Medications (Trade) Dose Ordered Sig/Shikha Route PRN Reason Start Time Stop Time Status Last Admin Dose Admin Al Hydroxide/Mg Hydroxide (MAALox PLUS 30ML) 30 ml ONCE ONCE PO 09/01/24 23:00 09/01/24 23:01 DC 09/01/24 23:04 Famotidine (Pepcid 20mg Vial) 20 mg ONCE ONCE IV 09/01/24 20:30 09/01/24 20:31 DC 09/01/24 21:50 Iohexol (Omnipaque) 35,000 mg STK-MED ONCE IV 09/01/24 23:12 09/01/24 23:12 DC Lidocaine HCl (Lidocaine HCl 2% Viscous) 10 ml ONCE ONCE PO 09/01/24 23:00 09/01/24 23:01 DC 09/01/24 23:04 Morphine Sulfate (morPHINE 2MG SYG) 2 mg ONCE ONCE IVP 09/01/24 23:00 09/01/24 23:01 DC 09/01/24 23:04 Ondansetron HCl (zoFRAN 4MG INJ) 4 mg ONCE ONCE IVP 09/01/24 20:30 09/01/24 20:31 DC 09/01/24 21:50 Ondansetron HCl (zoFRAN 4MG INJ) 4 mg ONCE ONCE IVP 09/01/24 23:00 09/01/24 23:01 DC Pantoprazole Sodium (PROTonix 40MG INJ) 40 mg ONCE ONCE IVP 09/01/24 23:00 09/01/24 23:01 DC Vital Signs Date Time Temp Pulse Resp B/P (MAP) Pulse Ox O2 Delivery O2 Flow Rate FiO2 09/01/24 22:03 78 18 120/50 98 Room Air* 0 21 09/01/24 19:40 97.5 67 20 117/67 98 Room Air DX & DISP Disposition: Discharge Departure Impression: Primary Impression: Gastritis Condition: Stable Scripts Famotidine (Pepcid) 20 Mg Tablet 1 TAB PO BID for 30 Days, #60 TAB 0 Refills Prov: ROWENA VILLALOBOS 09/02/24 Ondansetron (Ondansetron Odt) 4 Mg Tab.rapdis 4 MG PO BID for 7 Days, #14 TAB Prov: ROWENA VILLALOBOS 09/02/24 Additional Instructions: You need to follow up with the machinist 2nd shift outpatient for possible endoscopy/colonoscopy. Referrals: SELF,REFERRAL (PCP) RADHA PIEDRA MD I have reviewed the case, and I agree with, Diagnosis and Plan I performed the substantive portion of the visit. I have reviewed and personally made and approve the management plan that is documented in the note by myself or the KEN. I acknowledge for responsibility for the patient's carly gement plan. ROWENA VILLALOBOS September 02, 2024 00:24
[2024-09-02] MEDS: PANTOPrazole 40 MG/VIAL IVP ONE (00:32)
[2024-09-02 00:40] VITALS: BP 120/65; PULSE 61; RESP 16; TEMP 97.6; O2SAT 98
== END 2024-09-02 00:46 | disposition home or self-care (01) ==
LOC: EDH 18:59
DX: K29.70 Gastritis, unspecified, without bleeding (principal); Z79.899 Other long term (current) drug therapy; Z90.49 Acquired absence of other specified parts of digestive tract
CPT/HCPCS: 99285; 74177; 96374; 96375; 80076; 84484; 80048; 83690; 85025; 81003; 36415; 93005; J3490; J2270; J2405; Q9967

== ENCOUNTER 2024-11-28 22:49 | Emergency (ER) | payer SELFPAY ==
[~2024-11-28] VITALS: Ht 157.5 cm; Wt 68.0 kg
[~2024-11-28 22:49] MED LIST changes: -CIPR-478 PO; +CIPR-514 PO
[2024-11-28 22:53] VITALS: TEMP 98.1
[2024-11-28 23:29] LABS: IMMATURE GRANULOCYTE ABSOLUTE 0.02 K/uL (0-1); NUCLEATED RED BLOOD CELLS 0.0 % (0.0-0.19); PLATELET COUNT (AUTO) 193 K/uL (130-400); RED BLOOD CELL COUNT(AUTO) 3.80 MIL/uL (4.00-5.50); RED CELL DISTRIBUTION WIDTH 13.2 % (11.0-15.5); WHITE BLOOD COUNT (AUTO) 5.8 K/uL (4.8-10.8)
--- NOTE | 2024-11-28 23:54 | HMCIMG ---
EXAM: CR Chest, 1 View. CLINICAL HISTORY: CHEST PAIN COMPARISON: None provided. FINDINGS: LUNGS: The lungs show no infiltrate or other acute finding. PLEURAL SPACES: No pleural effusion or pneumothorax. MEDIASTINUM: The cardiomediastinal silhouette is within normal limits. BONES: No acute osseous abnormality. IMPRESSION: No acute cardiopulmonary pathology is evident. /[place]
[2024-11-28 23:55] LABS: CREATININE 0.7 mg/dL (0.5-1.0); GLOMERULAR FILTR. RATE CALC 104.0 mL/min (>90); GLUCOSE,RANDOM 102.0 mg/dL (70-105); SODIUM SERUM 137.0 mmol/L (136-145); UREA NITROGEN, BLOOD 8.0 mg/dL (7-18)
[2024-11-29] LABS: CREATINE KINASE, TOTAL 62.0 U/L (21-232)
--- NOTE | 2024-11-29 00:06 | ERN ---
ED Note History of Present Illness Stated Complaint: CHEST PRESSURE X 1 HOUR Chief Complaint: Chest Pain Time Seen by MD: 23:19 Dictation: This is a 54-year-old female who was brought in by family members with complaints of chest pressure for 1 hour prior to the presentation. Family members reported that patient was drinking a 12 pack beer completely by herself before her symptoms started. No history of any palpitations or syncopal episode no diaphoresis. She has a known history of gastritis and peptic ulcer disease and I am unable to obtain details about her pain as she is quite intoxicated during my evaluation Temperature 98.1 pulse 94 respiratory rate 16 blood pressure 123/81 with a pulse oximetry of 98% on room air Allergies: Coded Allergies: No Known Drug Allergies (Unverified Allergy, Unknown, 07/13/19) Uncoded Allergies: NKDA (Allergy, Unknown, 09/03/13) Home Meds Active Scripts Famotidine (Pepcid) 20 Mg Tablet, 1 TAB PO BID for 30 Days, #60 TAB 0 Refills Prov:ROWENA VILLALOBOS 09/02/24 Ondansetron (Ondansetron Odt) 4 Mg Tab.rapdis, 4 MG PO BID for 7 Days, #14 TAB Prov:ROWENA VILLALOBOS 09/02/24 Famotidine (Pepcid) 20 Mg Tablet, 1 TAB PO BID for 30 Days, #60 TAB 0 Refills Prov:ORWENA VILLALBOOS 08/18/24 Ondansetron (Ondansetron Odt) 4 Mg Tab.rapdis, 4 MG PO BID for 7 Days, #14 TAB Prov:ROWENA VILLALOBOS 08/18/24 Loratadine (Loratadine) 10 Mg Tablet, 1 TAB PO DAILY for allergy symptoms for 30 Days, #30 TAB 0 Refills Prov:CAMILLA MÉNDEZ MD 07/05/24 Fluticasone Propionate (Flonase Nasal [place]) 50 Mcg/Actuation [place], 2 SPRAY NS DAILY, #16 GM 0 Refills Prov:CAMILLA MÉNDEZ MD 07/05/24 Ibuprofen (Ibuprofen 800 mg Tab) 800 Mg Tab, 800 MG PO Q6H PRN for PAIN, #30 TAB Prov:AFIA HOFFMAN NP 08/11/23 Clindamycin HCl (Clindamycin HCl) 300 Mg Capsule, 1 CAP PO QID for 10 Days, #40 CAP 0 Refills Prov:AFIA HOFFMAN RECREATION ADVISER 08/11/23 Mag Hydrox/Aluminum Hyd/Simeth (Maalox Advanced Suspension) 200 Mg-200 Mg-20 Mg/5 Ml Oral.susp, 30 ML PO Q4HPRN PRN for ABDOMINAL PAIN, #335 ML 0 Refills Prov:AMANDA [facility] 07/03/23 Ondansetron (Ondansetron Odt) 4 Mg Tab.rapdis, 4 MG PO Q6HPRN PRN for nausea, #12 TAB 0 Refills Prov:AMANDA [facility] 07/03/23 Famotidine (Pepcid) 20 Mg Tablet, 1 TAB PO BID, #14 TAB 0 Refills Prov:AMANDA [facility] 07/03/23 Lactulose (Kristalose) 20 Gram Packet, 20 GM PO HS, #7 PKT Prov:RAFA [facility] 07/03/23 Metoclopramide HCl (Reglan) 10 Mg Tablet, 10 MG PO TIDP, #20 TAB 0 Refills Prov:EULALIA UPTON MD 03/18/21 Dicyclomine HCl (Bentyl) 20 Mg Tab, 20 MG PO Q6HPRN, #20 TAB 0 Refills Prov:EULALIA UPTON MD 03/18/21 Pantoprazole Sodium (Protonix) 40 Mg Tablet.dr, 40 MG PO DAILY, #10 TAB 0 Refills Prov:EULALIA UPTON MD 03/18/21 Ondansetron (Ondansetron Odt) 4 Mg Tab.rapdis, 4 MG PO Q6HPRN, #20 TAB 0 Refills Prov:EULALIA UPTON MD 03/18/21 Ferrous Sulfate (Ferrous Sulfate) 325 Mg Tablet, 325 MG PO DAILY, #30 TAB 2 Refills Prov:THELMA KING NP 02/26/21 Norgestimate-Ethinyl Estradiol (Ortho Tri-Cyclen) 1 Each Tablet, 1 EACH PO DAILY, #30 TAB 3 Refills Prov:THELMA KING NP 02/26/21 Clotrimazole (Lotrimin 1% Cream) 1 Appl/Gm Crm, 1 APPL TP BID, #30 GM Prov:KATHIE REVELES 12/14/20 Famotidine (Pepcid) 20 Mg Tablet, 20 MG PO BID, #30 TAB Prov:GARIMA SALAZAR MD 09/10/14 Ciprofloxacin HCl (Ciprofloxacin HCl) 500 Mg Tablet, 500 MG PO BID, #14 TAB Prov:GARIMA SALAZAR MD 09/10/14 Metronidazole (Flagyl) 500 Mg Tablet, 500 MG PO BID, #14 TAB Prov:GARIMA SALAZAR MD 09/10/14 Past Medical History Past Medical History: No Pertinent History Additional Past Medical Hx: 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 Surgical History: Cholecystectomy, Surgical History Other: x6 Family History: Negative Social History: Negative, Lives with family History: Not Applicable RN Note Reviewed/Agreed w/PFSH: Yes Review of System Dictation Constitutional: Negative for fever,chills, and weight loss Eyes: Negative for injury, pain,redness, and discharge ENT: Negative for injury,pain or swelling Cardiovascular: Positive for chest pain, did not palpitations, and edema Respiratory: Negative for shortness of breath, cough, and wheezing, Abdomen/GI: Negative for abdominal pain, nausea, vomiting, diarrhea, and constipation Back: Negative for injury and pain : Negative for injury, bleeding and discharge MS/Extremity: Negative for injury and deformity Skin: Negative for rash, and discoloration Neuro: Negative for headache, weakness, numbness, tingling, and seizure Psych: Negative for suicide ideation, homicidal ideation, and hallucinations Initial Vital Sign VS Vital Signs Date Time Temp Pulse Resp B/P (MAP) Pulse Ox O2 Delivery O2 Flow Rate FiO2 11/28/24 22:53 98.1 94 16 123/81 98 Room Air 0 11/28/24 23:23 21 Physical Exam Dictation General: awake, alert, NAD chronically ill-appearing unkempt Head/Face: Normocephalic, atraumatic Eyes: PERRL, EOMI, vision at baseline ENT: oral cavity clear, TMs clear, no signs of infection very poor dentition Neck: Trachea midline, supple, no nuchal rigidity Cardiovascular: RRR, normal S1/S2, No MRGs, no JVD Respiratory: CTAB, no respiratory distress, No rales or wheezes Abdomen: Soft, mild epigastric tenderness, non-distended, normal bowel sounds, no guarding or rebound. Skin: Warm, dry, normal turgor, no rash MS/Extremity: Pulses equal, no cyanosis, neurovascular intact, FROM Neuro: COAx4, GCS 15, strength 5/5, CN 2-12 intact, normal cerebellar exam, normal gait, Psych: Normal behavior, mood, and affect normal Extremities-trace edema without any palpable cords, Homans sign is negative Results (Laboratory/Radiology) Laboratory/Radiology Laboratory Tests Test 11/28/24 23:20 White Blood Count 5.8 K/uL (4.8-10.8) Red Blood Count 3.80 MIL/uL (4.00-5.50) L Hemoglobin 10.7 g/dL (12.0-16.0) L Hematocrit 33.5 % (36-48) L Mean Corpuscular Volume 88.2 fL (79-99) Mean Corpuscular Hemoglobin 28.2 pg (27.0-33.0) Mean Corpuscular Hemoglobin Concent 31.9 g/dL (32.0-36.0) L Red Cell Distribution Width 13.2 % (11.0-15.5) Platelet Count 193 K/uL (130-400) Mean Platelet Volume 10.5 fL (7.5-10.5) Immature Granulocyte % (Auto) 0.3 % (0-1) Neutrophils (%) (Auto) 58.9 % (40.0-77.0) Lymphocytes (%) (Auto) 31.6 % (21.0-51.0) Monocytes (%) (Auto) 6.3 % (3.0-13.0) Eosinophils (%) (Auto) 2.4 % (0.0-8.0) Basophils (%) (Auto) 0.5 % (0.0-5.0) Neutrophils # (Auto) 3.4 K/uL (1.8-7.7) Lymphocytes # (Auto) 1.8 K/uL (1.0-4.8) Monocytes # (Auto) 0.4 K/uL (0.1-1.0) Eosinophils # (Auto) 0.14 K/uL (0.00-0.70) Basophils # (Auto) 0.03 K/uL (0.00-0.20) Absolute Immature Granulocyte (auto 0.02 K/uL (0-1) Nucleated Red Blood Cells 0.0 % (0.0-0.19) Sodium Level 137 mmol/L (136-145) Potassium Level 3.4 mmol/L (3.5-5.1) L Chloride Level 103 mmol/L (101-111) Carbon Dioxide Level 25 mmol/L (21-32) Blood Urea Nitrogen 8 mg/dL (7-18) Creatinine 0.7 mg/dL (0.5-1.0) Glomerular Filtration Rate Calc 104 mL/min (>90) Random Glucose 102 mg/dL (70-105) Total Calcium 8.3 mg/dL (8.5-10.1) L Total Creatine Kinase 62 U/L (21-232) Troponin I High Sensitivity < 4 ng/L (4-50) L Serum Alcohol 265 mg/dL (0-10) H Labs Reviewed?: Yes ED Course ED Course Orders Procedure Category Date Status Time 12 Lead Ekg Tracing- EKG 11/28/24 Logged Technical 22:52 Vital Signs Per CPOE 11/28/24 Transmitted Routine 22:58 Chest 1vw RAD 11/28/24 Resulted 22:58 Oxygen By Nc/Pulse Ox CPOE 11/28/24 Transmitted 22:58 Maintain Iv CPOE 11/28/24 Transmitted 22:58 Iv Insertion CPOE 11/28/24 Transmitted 22:58 Cardiac Monitoring CPOE 11/28/24 Transmitted 22:58 Pulse Oximetry With CPOE 11/28/24 Transmitted Vs And Prn 22:58 Cbc With Differential LAB 11/28/24 Complete 22:58 Activity: Br W/Brp CPOE 11/28/24 Transmitted With Assist 22:58 Creatine Kinase, Total LAB 11/28/24 Complete 22:58 Troponin I High LAB 11/28/24 Complete Sensitivity 22:58 Urinalysis Profile LAB 11/28/24 Logged 22:58 Basic Metabolic Panel LAB 11/28/24 Complete 22:58 Alcohol, Blood LAB 11/28/24 Complete 23:08 Ondansetron 4mg Inj PHA 11/28/24 Complete (Zofran 4mg Inj) 23:30 Thiamine Hcl (Vitamin PHA 11/28/24 Complete B-1) 23:30 0.9%Nacl 1000ml (Ns PHA 11/28/24 Complete 1000ml) 23:30 Pantoprazole 40mg Inj PHA 11/29/24 Complete (Protonix 40mg Inj 01:00 Current Medications Medications (Trade) Dose Ordered Sig/Shikha Route PRN Reason Start Time Stop Time Status Last Admin Dose Admin Ondansetron HCl (zoFRAN 4MG INJ) 4 mg ONCE ONCE IVP 11/28/24 23:30 11/28/24 23:31 DC 11/29/24 00:09 Pantoprazole Sodium (PROTonix 40MG INJ) 40 mg ONCE ONCE IVP 11/29/24 01:00 11/29/24 01:01 DC 11/29/24 01:21 Sodium Chloride 1,000 ml @ 0 mls/hr ONCE ONCE IV 11/28/24 23:30 11/28/24 23:31 DC 11/29/24 00:09 Thiamine HCl (Vitamin B-1) 100 mg ONCE ONCE IVP 11/28/24 23:30 11/28/24 23:31 DC 11/29/24 00:09 Vital Signs Date Time Temp Pulse Resp B/P (MAP) Pulse Ox O2 Delivery O2 Flow Rate FiO2 11/29/24 05:31 83 18 111/66 97 Room Air* 0 11/29/24 04:38 91 18 100/61 97 Room Air* 0 11/29/24 03:56 95 16 100/61 95 Room Air* 0 11/29/24 02:54 88 18 110/63 96 Room Air* 0 11/29/24 02:13 90 18 129/63 98 Room Air* 0 11/29/24 01:30 88 18 100/56 97 Room Air* 0 11/29/24 00:07 89 18 106/62 96 Room Air* 0 11/28/24 23:23 100 18 135/84 98 Room Air* 0 11/28/24 22:53 98.1 94 16 123/81 98 Room Air 0 We will perform diagnostic labs, advanced imaging and administer medications according to the patient's complaint. Once the results are available, will review and personally interpreted the labs to rule out any acute life- threatening emergency the trach require immediate intervention and treatment. I will then re-evaluate the patient after treatment and diagnostic exams have return to determine whether the patient requires any further testing, can safely be discharged home or need further admission to hospital for additional treatment and evaluation. Labs reviewed CBC showed a hemoglobin of 10.7 platelets 193. BNP 7 is significant for potassium of 3.4. Troponins are negative. Serum alcohol level 265 Chest x-ray is unremarkable. Patient's spouse at bedside patient is intoxicated but arousable with deep stimulation. I updated the patient's spouse on all the available labs and and recommended that patient needed to sober up. Patient's spouse seems quite frail and I recommended perhaps waiting deformity safely take her home He has agreed 5:50 a.m. patient is more alert awake ambulating to the bathroom without any issues. Chest pain workup negative we will discharge to follow up with her primary care physician HEART Score Response (Comments) Value History: Low suspicion (0) 0 EKG: Normal 0 Age: 45-65yrs (+1) 1 Risk Factors: No known risk factors (0) 0 Initial Troponin: Normal limit (0) 0 HEART Score Risk: Low Risk for MACE (1-3) Total 1 Medical Decision Making MDM MDM: Differential diagnosis: Gastritis, esophagitis, biliary colic, peptic ulcer disease, cardiac chest pain Rationale: Tests considered and ordered secondary to shared decision making include: Previous outside records reviewed: Old ER visits. Risk of complication and/or morbidity or mortality of patient management: None Medications-Per medication reconciliation Need for hospitalization: Patient does not meet criteria for hospitalization. Need for emergency major/minor surgery: No There are no social concerns with this patient. Prescription drug management Prescriptions will include symptomatic care Patient's prior external medical records from other ER visits were reviewed by me as indicated. Prior testing and results from previous visits were reviewed. Prior tests were taken into account with medical decision making and resource utilization, independent historian/historians were used to obtain complete medical history. I independently interpreted the test that were performed, results were reviewed by me and considered findings on radiology if ordered. Medical management and examination interpretation discussions were had by me with other qualified healthcare professionals as indicated for the patient's care. DX & DISP Disposition: Discharge Departure Impression: Primary Impression: Atypical chest pain Additional Impressions: Gastritis, Alcohol intoxication Condition: Stable Additional Instructions: Patient and the caregiver have been informed of all the diagnostic tests and the imaging conducted during the today's visit to the emergency room and has verbalized understanding of the results I have personally reviewed and interpreted all diagnostic exams performed here in the ER today as well as the vital signs documented by the nursing staff. The patient is now being discharged to home and should follow up with the primary care physician or the specialist as directed by the ER staff. Follow-up with primary care provider in 1 to 2 days. Take medications as directed here in the emergency room. Okay to continue home medications unless otherwise discussed during your visit in the emergency room today. Return to your nearest emergency room if symptoms worsen or if there is no improvement. Call 911 if you need immediate assistance. Take Tylenol or Motrin [id number] as needed and if no contraindications are present. Increase oral hydration. A wound culture or urine culture was ordered here in the emergency room department please follow-up with primary care provider and advise them to get repeat ports from our facility. If you had any [place] wrap/splints that were applied here, please do not remove them until you see your primary care or specialty. Referrals: NONE (PCP) NICKY TOMLIN MD Nov 29, 2024 00:06
[2024-11-29] MEDS: THIAMINE HCL 100 MG/ML 2ML VIAL IVP ONE (00:09)
[2024-11-29] MEDS: 0.9%NACL 1000ML 1,000 ML IV ONE (00:09)
[2024-11-29 05:31] VITALS: BP 111/66; PULSE 83; RESP 18; O2SAT 97
--- NOTE | 2024-11-29 06:01 | EKG ---
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
== END 2024-11-29 06:13 | disposition home or self-care (01) ==
LOC: EDH 22:49
DX: R07.89 Other chest pain (principal); K29.70 Gastritis, unspecified, without bleeding; F10.129 Alcohol abuse with intoxication, unspecified; Z79.899 Other long term (current) drug therapy; Z90.49 Acquired absence of other specified parts of digestive tract; Y90.8 Blood alcohol level of 240 mg/100 ml or more
CPT/HCPCS: 99285; 71045; 82550; 84484; 80048; 85025; 36415; 93005; 96374; 96361; 96375; J7030; J3411; J2405; J2470

== ENCOUNTER 2025-01-23 11:18 | Emergency (ER) | payer SELFPAY ==
[~2025-01-23] VITALS: Ht 157.5 cm; Wt 68.7 kg
--- NOTE | 2025-01-23 11:25 | ERN ---
ED Note History of Present Illness Stated Complaint: HEADACHE Chief Complaint: Headache Time Seen by MD: 11:20 Dictation: PATIENT IS A 54-YEAR-OLD FEMALE COMING IN TODAY WITH COMPLAINTS OF BILATERAL OCCIPITAL HEADACHES RADIATES AROUND TO HER TEMPORAL AREAS SINCE YESTERDAY. NO FEVER NO CHILLS NO NAUSEA VOMITING. SHE HAS NO PRIMARY CARE DOCTOR AND TOOK TWO TYLENOL YESTERDAY WITHOUT SIGNIFICANT RELIEF. NIH IS 0. Allergies: Coded Allergies: No Known Drug Allergies (Unverified Allergy, Unknown, 07/13/19) Uncoded Allergies: NKDA (Allergy, Unknown, 09/03/13) Home Meds Active Scripts Famotidine (Pepcid) 20 Mg Tablet, 1 TAB PO BID for 30 Days, #60 TAB 0 Refills Prov:ROWENA VILLALOBOS 09/02/24 Ondansetron (Ondansetron Odt) 4 Mg Tab.rapdis, 4 MG PO BID for 7 Days, #14 TAB Prov:ROWENA VILLALOBOS 09/02/24 Famotidine (Pepcid) 20 Mg Tablet, 1 TAB PO BID for 30 Days, #60 TAB 0 Refills Prov:ROWENA VILLALOBOS 08/18/24 Ondansetron (Ondansetron Odt) 4 Mg Tab.rapdis, 4 MG PO BID for 7 Days, #14 TAB Prov:ROWENA VILLALOBOS 08/18/24 Loratadine (Loratadine) 10 Mg Tablet, 1 TAB PO DAILY for allergy symptoms for 30 Days, #30 TAB 0 Refills Prov:CAMILLA MÉNDEZ MD 07/05/24 Fluticasone Propionate (Flonase Nasal Alta) 50 Mcg/Actuation [place], 2 SPRAY NS DAILY, #16 GM 0 Refills Prov:CAMILLA MÉNDEZ MD 07/05/24 Ibuprofen (Ibuprofen 800 mg Tab) 800 Mg Tab, 800 MG PO Q6H PRN for PAIN, #30 TAB Prov:AFIA HOFFMAN 08/11/23 Clindamycin HCl (Clindamycin HCl) 300 Mg Capsule, 1 CAP PO QID for 10 Days, #40 CAP 0 Refills Prov:AFIA HOFFMAN 08/11/23 Mag Hydrox/Aluminum Hyd/Simeth (Maalox Advanced Suspension) 200 Mg-200 Mg-20 Mg/5 Ml Oral.susp, 30 ML PO Q4HPRN PRN for ABDOMINAL PAIN, #335 ML 0 Refills Prov:AMANDA CRUMP [facility] 07/03/23 Ondansetron (Ondansetron Odt) 4 Mg Tab.rapdis, 4 MG PO Q6HPRN PRN for nausea, #12 TAB 0 Refills Prov:AMANDA CRUMP [facility] 07/03/23 Famotidine (Pepcid) 20 Mg Tablet, 1 TAB PO BID, #14 TAB 0 Refills Prov:AMANDA CRUMP [facility] 07/03/23 Lactulose (Kristalose) 20 Gram Packet, 20 GM PO HS, #7 PKT Prov:NICKRAFA BARBER V [facility] 07/03/23 Metoclopramide HCl (Reglan) 10 Mg Tablet, 10 MG PO TIDP, #20 TAB 0 Refills Prov:EULALIA UPTON MD 03/18/21 Dicyclomine HCl (Bentyl) 20 Mg Tab, 20 MG PO Q6HPRN, #20 TAB 0 Refills Prov:EULALIA UPTON MD 03/18/21 Pantoprazole Sodium (Protonix) 40 Mg Tablet.dr, 40 MG PO DAILY, #10 TAB 0 Refills Prov:EULALIA UPTON MD 03/18/21 Ondansetron (Ondansetron Odt) 4 Mg Tab.rapdis, 4 MG PO Q6HPRN, #20 TAB 0 Refills Prov:EULALIA UPTON MD 03/18/21 Ferrous Sulfate (Ferrous Sulfate) 325 Mg Tablet, 325 MG PO DAILY, #30 TAB 2 Refills Prov:THELMA KING NP 02/26/21 Norgestimate-Ethinyl Estradiol (Ortho Tri-Cyclen) 1 Each Tablet, 1 EACH PO DAILY, #30 TAB 3 Refills Prov:THELMA KING NP 02/26/21 Clotrimazole (Lotrimin 1% Cream) 1 Appl/Gm Crm, 1 APPL TP BID, #30 GM Prov:KATHIE REVELES 12/14/20 Famotidine (Pepcid) 20 Mg Tablet, 20 MG PO BID, #30 TAB Prov:GARIMA SALAZAR MD 09/10/14 Ciprofloxacin HCl (Ciprofloxacin HCl) 500 Mg Tablet, 500 MG PO BID, #14 TAB Prov:GARIMA SALAZAR MD 09/10/14 Metronidazole (Flagyl) 500 Mg Tablet, 500 MG PO BID, #14 TAB Prov:GARIMA SALAZAR MD 09/10/14 Past Medical History Past Medical History: No Pertinent History Additional Past Medical Hx: 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 Surgical History: Cholecystectomy, Surgical History Other: x6 Family History: Negative Social History: Negative, Lives with family History: Not Applicable RN Note Reviewed/Agreed w/PFSH: Yes Review of System Dictation CONSTITUTIONAL: NEGATIVE EXCEPT FOR HPI HEAD/FACE: NEGATIVE EXCEPT FOR HPI EENT: NEGATIVE EXCEPT FOR HPI RESPIRATORY: NEGATIVE EXCEPT FOR HPI GASTROINTESTINAL/ABDOMINAL: NEGATIVE EXCEPT FOR HPI GENITOURINARY: NEGATIVE EXCEPT FOR HPI MUSCULOSKELETAL: NEGATIVE EXCEPT FOR HPI INTEGUMENTARY: NEGATIVE EXCEPT FOR HPI NEUROLOGICAL/PSYCH: NEGATIVE EXCEPT FOR HPI OCCIPITAL HEAD HEMATOLOGIC/LYMPHATIC: NEGATIVE EXCEPT FOR HPI ALL SYSTEMS NEGATIVE, EXCEPT NOTED ABOVE. 13 POINT REVIEW OF SYSTEMS ASSESSED AND ALL NEGATIVE EXCEPT FOR ABOVE. Initial Vital Sign VS Vital Signs Date Time Temp Pulse Resp B/P (MAP) Pulse Ox O2 Delivery O2 Flow Rate FiO2 01/23/25 11:19 97.7 66 16 130/66 0 0 01/23/25 11:24 Room Air* 21 Physical Exam Dictation VITAL SIGNS REVIEWED GENERAL APPEARANCE: ALERT, ORIENTED X 3, NO ACUTE DISTRESS, WELL DEVELOPED, NOURISHED. HEAD AND FACE: NON-TRAUMATIC. EYES: PERRL, PINK CONJUNCTIVAS, EYELID NO TRAUMA, ANTERIOR CHAMBER WITH ARCUS SENILIS. EARS: PINNAS INTACT AND NO SIGNS OF TRAUMA OR ERYTHEMA EAR CANALS CLEAR AND NO DISCHARGE TM NO ERYTHEMA NOSE: NO DISCHARGE, NO BLEEDING. OROPHARYNX: MOUTH NORMAL, TONGUE PINK, PHARYNX CLEAR,NO ERYTHEMA, TONSILS NO EXUDATES, NO ABSCESSES NOTED, MUCOUS MEMBRANE MOIST NECK: SUPPLE, NON-TENDER, NO THYROMEGALY, NO MASSES, NO JVD, NO BRUITS BREAST:DEFERRED CHEST:NO TENDERNESS, NO CREPITUS, NO PARADOXICAL MOVEMENT, NO RETRACTIONS LUNGS:CLEAR, WELL-VENTILATED, SYMMETRIC, NO RALES, NO WHEEZING, NO RHONCHI, NO STRIDOR, GOOD BREATH SOUNDS BILATERALLY HEART: REGULAR RATE, REGULAR RHYTHM, NO MURMUR, NO GALLOPS VASCULAR: NO PERIPHERAL EDEMA, ABDOMEN: SOFT, POSITIVE BOWEL SOUNDS, NONDISTENDED, NO GUARDING, NONTENDER, NO REBOUND, NO MASSES NO HEPATOMEGALY, NO SPLENOMEGALY, NO MAURICE'S SIGN, NO HERNIAS. RECTAL: DEFERRED GENITAL: DEFERRED NEUROLOGICAL: NORMAL SPEECH, MOTOR FUNCTION INTACT, SENSORY FUNCTION INTACT NIH IS 0 MUSCULOSKELETAL: NECK NONTENDER, FULL RANGE OF MOTION, BACK NONTENDER, FULL RANGE OF MOTION, EXTREMITIES: NONTENDER, FULL RANGE OF MOTION SKIN: COLOR PINK, DRY, NO TURGOR, NO RASH, NO LACERATIONS, NO ABRASIONS, NO CONTUSIONS. LYMPHATIC: DEFERRED Results (Laboratory/Radiology) Laboratory/Radiology Laboratory Tests Test 01/23/25 11:46 White Blood Count 5.2 K/uL (4.8-10.8) Red Blood Count 3.83 MIL/uL (4.00-5.50) L Hemoglobin 10.8 g/dL (12.0-16.0) L Hematocrit 34.3 % (36-48) L Mean Corpuscular Volume 89.6 fL (79-99) Mean Corpuscular Hemoglobin 28.2 pg (27.0-33.0) Mean Corpuscular Hemoglobin Concent 31.5 g/dL (32.0-36.0) L Red Cell Distribution Width 13.3 % (11.0-15.5) Platelet Count 186 K/uL (130-400) Mean Platelet Volume 11.3 fL (7.5-10.5) H Immature Granulocyte % (Auto) 0.2 % (0-1) Neutrophils (%) (Auto) 66.0 % (40.0-77.0) Lymphocytes (%) (Auto) 22.9 % (21.0-51.0) Monocytes (%) (Auto) 6.0 % (3.0-13.0) Eosinophils (%) (Auto) 4.1 % (0.0-8.0) Basophils (%) (Auto) 0.8 % (0.0-5.0) Neutrophils # (Auto) 3.4 K/uL (1.8-7.7) Lymphocytes # (Auto) 1.2 K/uL (1.0-4.8) Monocytes # (Auto) 0.3 K/uL (0.1-1.0) Eosinophils # (Auto) 0.21 K/uL (0.00-0.70) Basophils # (Auto) 0.04 K/uL (0.00-0.20) Absolute Immature Granulocyte (auto 0.01 K/uL (0-1) Nucleated Red Blood Cells 0.0 % (0.0-0.19) Sodium Level 141 mmol/L (136-145) Potassium Level 4.0 mmol/L (3.5-5.1) Chloride Level 104 mmol/L (101-111) Carbon Dioxide Level 29 mmol/L (21-32) Blood Urea Nitrogen 15 mg/dL (7-18) Creatinine 0.8 mg/dL (0.5-1.0) Glomerular Filtration Rate Calc 89 mL/min (>90) Random Glucose 71 mg/dL (70-105) Total Calcium 8.8 mg/dL (8.5-10.1) Labs Reviewed?: Yes ED Course ED Course Orders Procedure Category Date Status Time Acetaminophen 500mg PHA 01/23/25 Complete Tab (Tylenol 500mg T 11:30 Cyclobenzaprine Hcl PHA 01/23/25 Complete (Cyclobenzaprine Hcl 11:30 Cbc With Differential LAB 01/23/25 Complete 11:23 Basic Metabolic Panel LAB 01/23/25 Complete 11:23 Current Medications Medications (Trade) Dose Ordered Sig/Shikha Route PRN Reason Start Time Stop Time Status Last Admin Dose Admin Acetaminophen (TYLenol 500MG TAB) 1,000 mg ONCE ONCE PO 01/23/25 11:30 01/23/25 11:31 DC 01/23/25 11:32 Cyclobenzaprine HCl (Cyclobenzaprine HCl) 10 mg ONCE ONCE PO 01/23/25 11:30 01/23/25 11:31 DC 01/23/25 11:31 Vital Signs Date Time Temp Pulse Resp B/P (MAP) Pulse Ox O2 Delivery O2 Flow Rate FiO2 01/23/25 11:44 70 16 124/71 100 Room Air* 0 21 01/23/25 11:24 97.7 66 16 130/66 99 Room Air* 0 21 01/23/25 11:19 97.7 66 16 130/66 0 0 1202/PATIENT STATES PAIN MARKEDLY IMPROVED AFTER TREATMENT. NO HYPOTENSION AT THIS TIME PATIENT IS NEUROLOGICALLY INTACT WE WILL BE DISCHARGED HOME WITH TENSION HEADACHE CHRONIC ANEMIA Medical Decision Making MDM MDM: DIFFERENTIAL DIAGNOSIS: HYPERTENSION/ELECTROLYTE IMBALANCE/DEHYDRATION/TENSION HEADACHE ANXIETY RATIONALE: TESTS CONSIDERED AND ORDERED SECONDARY TO SHARED DECISION MAKING INCLUDE: LABS PREVIOUS OUTSIDE RECORDS REVIEWED: OLD ER VISITS. RISK OF COMPLICATION AND/OR MORBIDITY OR MORTALITY OF PATIENT MANAGEMENT: NONE MEDICATIONS-PER MEDICATION RECONCILIATION NEED FOR HOSPITALIZATION: PATIENT DOES NOT MEET CRITERIA FOR HOSPITALIZATION. NO NEED FOR EMERGENCY MAJOR/MINOR SURGERY: NO THERE ARE NO SOCIAL CONCERNS WITH THIS PATIENT. PRESCRIPTION DRUG MANAGEMENT IBUPROFEN PRESCRIPTIONS WILL INCLUDE SYMPTOMATIC CARE PATIENT'S PRIOR EXTERNAL MEDICAL RECORDS FROM OTHER ER VISITS WERE REVIEWED BY ME INDICATED. PRIOR TESTING AND RESULTS FROM PREVIOUS VISITS WERE REVIEWED. PRIOR TESTS WERE TAKEN INTO ACCOUNT WITH MEDICAL DECISION MAKING AND RESOURCE UTILIZATION, INDEPENDENT HISTORIAN/HISTORIANS WERE USED TO OBTAIN COMPLETE MEDICAL HISTORY. I INDEPENDENTLY INTERPRETED THE TEST THAT WERE PERFORMED, RESULTS WERE REVIEWED BY ME AND CONSIDERED FINDINGS ON RADIOLOGY IF ORDERED. MEDICAL MANAGEMENT AND EXAMINATION INTERPRETATION DISCUSSIONS WERE HAD BY ME WITH OTHER QUALIFIED HEALTHCARE PROFESSIONALS INDICATED FOR THE PATIENT'S CARE. DX & DISP Disposition: Discharge Departure Impression: Primary Impression: Tension headache Additional Impression: Chronic anemia Condition: Stable Scripts Ibuprofen (Ibuprofen 800 mg Tab) 800 Mg Tab 800 MG PO Q8H PRN for fever or pain, #30 TAB 0 Refills Prov: AFIA HOFFMAN 01/23/25 Additional Instructions: FOLLOW-UP WITH PRIMARY CARE PROVIDER IN 1 TO 2 DAYS. TAKE MEDICATIONS DIRECTED HERE IN THE EMERGENCY ROOM. OKAY TO CONTINUE HOME MEDICATIONS UNLESS OTHERWISE DISCUSSED DURING YOUR VISIT IN THE EMERGENCY ROOM TODAY. RETURN TO YOUR NEAREST EMERGENCY ROOM IF SYMPTOMS WORSEN OR IF THERE IS NO IMPROVEMENT. CALL 911 IF YOU NEED IMMEDIATE ASSISTANCE. TAKE TYLENOL OR MOTRIN [id number] NEEDED AND IF NO CONTRAINDICATIONS ARE PRESENT. INCREASE ORAL HYDRATION. A WOUND CULTURE OR URINE CULTURE WAS ORDERED HERE IN THE EMERGENCY ROOM DEPARTMENT PLEASE FOLLOW-UP WITH PRIMARY CARE PROVIDER AND ADVISE THEM TO GET REPEAT PORTS FROM OUR FACILITY. IF YOU HAD ANY RAJINDER WRAP/SPLINTS THAT WERE APPLIED HERE, PLEASE DO NOT REMOVE THEM UNTIL YOU SEE YOUR PRIMARY CARE OR SPECIALTY. TAKE IBUPROFEN WITH FOOD NEEDED FOR PAIN. SEE YOUR PRIMARY CARE DOCTOR ON SATURDAY FOR FOLLOW UP AND MANAGEMENT Referrals: SELF,REFERRAL (PCP) Time of Disposition: 12:06 I have reviewed the case, and I agree with, Diagnosis and Plan AFIA HOFFMAN Jan 23, 2025 11:25
[2025-01-23] MEDS: CYCLOBENZAPRINE HCL 10 MG TABLET PO ONE (11:31)
[2025-01-23 11:51] LABS: IMMATURE GRANULOCYTE ABSOLUTE 0.01 K/uL (0-1); NUCLEATED RED BLOOD CELLS 0.0 % (0.0-0.19); PLATELET COUNT (AUTO) 186 K/uL (130-400); RED BLOOD CELL COUNT(AUTO) 3.83 MIL/uL (4.00-5.50); RED CELL DISTRIBUTION WIDTH 13.3 % (11.0-15.5); WHITE BLOOD COUNT (AUTO) 5.2 K/uL (4.8-10.8)
[2025-01-23 12:02] LABS: CREATININE 0.8 mg/dL (0.5-1.0); GLOMERULAR FILTR. RATE CALC 89.0 mL/min (>90); GLUCOSE,RANDOM 71.0 mg/dL (70-105); SODIUM SERUM 141.0 mmol/L (136-145); UREA NITROGEN, BLOOD 15.0 mg/dL (7-18)
[2025-01-23] MEDS ORDERED: IBUP-2077 PO (12:08)
[2025-01-23 12:10] VITALS: BP 126/74; PULSE 72; RESP 16; TEMP 98; O2SAT 99
== END 2025-01-23 12:16 | disposition home or self-care (01) ==
LOC: EDH 11:18
DX: G44.209 Tension-type headache, unspecified, not intractable (principal); D64.9 Anemia, unspecified; Z79.899 Other long term (current) drug therapy; Z90.49 Acquired absence of other specified parts of digestive tract; Z98.890 Other specified postprocedural states
CPT/HCPCS: 36415; 80048; 85025; 99283